=== PATIENT | male | born 1945 | race Caucasian/White ===

== ENCOUNTER 2020-10-03 15:46 | Inpatient (IN) | payer OTHER ==
[2020-10-03] MEDS ORDERED: Sodium Chloride 0.9% 10 ML Syringe FLUSH PRN (16:10)
[2020-10-03] MEDS ORDERED: Sodium Chloride 0.9% 2.5 ML Syringe FLUSH PRN (16:10)
[2020-10-03] MEDS ORDERED: Ondansetron 4 MG/2 ML SDV IVPUSH ONE (16:11)
--- NOTE | 2020-10-03 16:14 | EDM.PDOC ---
<WilburJoseph - Last Filed: 10/03/20 19:37> ED HPI GENERAL MEDICAL PROBLEM - General Chief Complaint: Gastrointestinal Problem Stated Complaint: [facility] Time Seen by Provider: 10/03/20 15:50 - History of Present Illness INITIAL COMMENTS - FREE TEXT/NARRATIVE: 75-year-old male history of CABG and CAD in the remote past history of appendectomy in the remote past who is presenting with nausea vomiting abdominal pain that started this morning. Patient typically has 5-7 bowel movements a day usually he has 4 bowel movements in the morning when he wakes up. He had 2 bowel movements today that felt incomplete. Around 1130 this morning he developed cramping generalized abdominal pain associated with chills and nonbloody nonbilious emesis. Has been unable to stop vomiting since then. Symptoms are associated with diffuse muscle cramps. Patient and his both had a complete Covid series but finished at the beginning of August. No prior history of bowel obstructions. abd Pain Score (Numeric/FACES): 8 - Related Data Allergies Allergy/AdvReac Type Severity Reaction Status Date / Time Penicillins Allergy Swelling Verified 10/03/20 16:00 Home Meds: Home Meds . 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 Skin: No rash. Eyes: No vision problems. ENT: No sore throat. Neck: No neck stiffness. Respiratory: No shortness of breath. Cardiac: No chest pain. Gastrointestinal: Per HPI Urinary: No dysuria. Musculoskeletal: No myalgias/arthralgias. Neurologic: No headache. ED EXAM, GENERAL - Physical Exam Exam: See Below Free Text/Narrative:: General Appearance: No acute distress, appears comfortable Skin: No rash HEENT: Normocephalic/atraumatic, sclera anicteric, dry mucous membranes Neck: Normal range of motion Chest and Lungs: Bilateral breath sounds, clear to auscultation Cardiovascular: Regular rate and rhythm, no murmur Abdomen: Soft, non-tender Back: Normal Musculoskeletal: No edema or tenderness Neurologic: Awake, alert, no obvious deficits, moving all extremities Psychiatric: Appropriate, cooperative Departure - Departure Disposition: Admitted As Inpatient 64 Clinical Impression: Splenic infarct Abdominal pain Qualifiers: Abdominal location: generalized Qualified Code(s): R10.84 - Generalized abdominal pain Cholelithiasis Qualifiers: Cholelithiasis location: gallbladder Cholecystitis presence: without cholecystitis Biliary obstruction: without biliary obstruction Qualified Code(s): K80.20 - Calculus of gallbladder without cholecystitis without obstruction - Discharge Information Referrals: Mahendra Shirley WELT RANDER [Primary Care Provider] - Forms: ED Department Discharge Sepsis Event Note (ED) - Evaluation Sepsis Screening Result: No Definite Risk - Assessment/Plan Assessment:: 75-year-old male presenting with signs and symptoms that are most consistent with a gastroenteritis versus bowel obstruction less likely diverticulitis Cristiano felt unlikely given his vaccination history but patient and family concerned and so we will swab. Zofran for symptoms as well as IV fluids the patient is clinically dehydrated. Labs and imaging pending. 1830: Labs with a significant leukocytosis. No significant transaminitis however. CT scan demonstrates a splenic infarct as well as cholelithiasis. Pt discussed with Dr. Fonseca. This large splenic infarct would explain his symptoms. However, the underlying etiology is unclear at this time. She will come evaluate the patient. 1850: I confirmed with the patient's that the patient does not take any medications of any kind, he takes daily psyllium powder as well as a multivitamin. No ASA or other medications. Patient and his both received the Moderna COVID vaccination. Pt signed out to Dr. Galarza pending final disposition. <Wellington Galarza - Last Filed: 10/03/20 19:54> ED HPI GENERAL MEDICAL PROBLEM - History of Present Illness INITIAL COMMENTS - FREE TEXT/NARRATIVE: 7:51 PM: Signout received by me at 7 PM. Patient is currently being evaluated by surgery secondary to splenic infarct and cholelithiasis. At this time, after case was discussed with vascular at [facility] by her surgery consult, plan will be to admit the patient to our hospitalist service and managed here in [place] [facility] with hydration and anticoagulation. Course - Vital Signs Last Recorded V/S: Last Vital Signs Temp 97.6 F 10/03/20 16:01 Pulse 78 10/03/20 17:00 Resp 17 10/03/20 17:00 BP 140/75 10/03/20 17:00 Pulse Ox 96 10/03/20 17:00 - Orders/Labs/Meds Orders: Active Orders 24 hr Category Date Time Status Lactated Ringers [Ringers, Lactated] 1,000 ml Med 10/03/20 16:15 Active IV ASDIRECTED Sodium Chloride 0.9% [Saline Flush] Med 10/03/20 16:10 Active 10 ml FLUSH ASDIRECTED PRN Sodium Chloride 0.9% [Saline Flush] Med 10/03/20 16:10 Active 2.5 ml FLUSH ASDIRECTED PRN Saline Lock Insert [OM.PC] Stat Oth 10/03/20 16:10 Ordered Medication Orders Lactated Ringer's (Ringers, Lactated) 1,000 mls @ 999 mls/hr IV ASDIRECTED DALE Last Admin: 10/03/20 16:19 Dose: 999 mls/hr Documented by: DAMIEN Sodium Chloride (Sodium Chloride 0.9% 10 Ml Syringe) 10 ml FLUSH ASDIRECTED PRN PRN Reason: Keep Vein Open Last Admin: 10/03/20 16:20 Dose: 10 ml Documented by: DAMIEN Sodium Chloride (Sodium Chloride 0.9% 2.5 Ml Syringe) 2.5 ml FLUSH ASDIRECTED PRN PRN Reason: Keep Vein Open Last Admin: 10/03/20 16:20 Dose: 2.5 ml Documented by: DAMIEN Labs: Laboratory Tests 10/03/20 10/03/20 10/03/20 Range/Units 16:14 16:14 16:14 WBC 22.32 H (4.0-11.0) K/uL RBC 4.28 L (4.50-5.90) M/uL Hgb 13.4 (13.0-17.0) g/dL Hct 40.4 (38.0-50.0) % MCV 94.4 (80.0-98.0) fL MCH 31.3 (27.0-32.0) pg MCHC 33.2 (31.0-37.0) g/dL RDW Std Deviation 43.0 (28.0-62.0) fl RDW Coeff of Karma 13 (11.0-15.0) % Plt Count 250 (150-400) K/uL MPV 8.50 (7.40-12.00) fL Neut % (Auto) 92.3 H (48.0-80.0) % Lymph % (Auto) 2.8 L (16.0-40.0) % [place] % (Auto) 4.9 (0.0-15.0) % Eos % (Auto) 0.0 (0.0-7.0) % Baso % (Auto) 0.0 (0.0-1.5) % Neut # (Auto) 20.6 H (1.4-5.7) K/uL Lymph # (Auto) 0.6 (0.6-2.4) K/uL [place] # (Auto) 1.1 H (0.0-0.8) K/uL Eos # (Auto) 0.0 (0.0-0.7) K/uL Baso # (Auto) 0.0 (0.0-0.1) K/uL Nucleated RBC % 0.0 /100WBC Nucleated RBCs # 0 K/uL Lactate 1.7 (0.20-2.00) mmol/L Sodium 138 (136-148) mmol/L Potassium 3.8 (3.5-5.1) mmol/L Chloride 102 (98-107) mmol/L Carbon Dioxide 25.1 (21.0-32.0) mmol/L BUN 16 (7.0-18.0) mg/dL Creatinine 1.2 (0.8-1.3) mg/dL Est Cr Clr Drug Dosing 51.55 mL/min Estimated GFR (MDRD) 58.7 ml/min Glucose 152 H (74-106) mg/dL Calcium 8.3 L (8.5-10.1) mg/dL Magnesium 2.1 (1.8-2.4) mg/dL Total Bilirubin 0.7 (0.2-1.0) mg/dL AST 20 (15-37) IU/L ALT 24 (14-63) IU/L Alkaline Phosphatase 70 (46-116) U/L Total Protein 7.6 (6.4-8.2) g/dL Albumin 3.2 L (3.4-5.0) g/dL Globulin 4.4 H (2.6-4.0) g/dL Albumin/Globulin Ratio 0.7 L (0.9-1.6) Lipase 79 (73-393) U/L Influenza Type A RNA (NEGATIVE) Influenza Type B RNA (NEGATIVE) SARS-CoV-2 RNA (ETTA) (NEGATIVE) 10/03/20 Range/Units 16:30 WBC (4.0-11.0) K/uL RBC (4.50-5.90) M/uL Hgb (13.0-17.0) g/dL Hct (38.0-50.0) % MCV (80.0-98.0) fL MCH (27.0-32.0) pg MCHC (31.0-37.0) g/dL RDW Std Deviation (28.0-62.0) fl RDW Coeff of Karma (11.0-15.0) % Plt Count (150-400) K/uL MPV (7.40-12.00) fL Neut % (Auto) (48.0-80.0) % Lymph % (Auto) (16.0-40.0) % [place] % (Auto) (0.0-15.0) % Eos % (Auto) (0.0-7.0) % Baso % (Auto) (0.0-1.5) % Neut # (Auto) (1.4-5.7) K/uL Lymph # (Auto) (0.6-2.4) K/uL [place] # (Auto) (0.0-0.8) K/uL Eos # (Auto) (0.0-0.7) K/uL Baso # (Auto) (0.0-0.1) K/uL Nucleated RBC % /100WBC Nucleated RBCs # K/uL Lactate (0.20-2.00) mmol/L Sodium (136-148) mmol/L Potassium (3.5-5.1) mmol/L Chloride (98-107) mmol/L Carbon Dioxide (21.0-32.0) mmol/L BUN (7.0-18.0) mg/dL Creatinine (0.8-1.3) mg/dL Est Cr Clr Drug Dosing mL/min Estimated GFR (MDRD) ml/min Glucose (74-106) mg/dL Calcium (8.5-10.1) mg/dL Magnesium (1.8-2.4) mg/dL Total Bilirubin (0.2-1.0) mg/dL AST (15-37) IU/L ALT (14-63) IU/L Alkaline Phosphatase (46-116) U/L Total Protein (6.4-8.2) g/dL Albumin (3.4-5.0) g/dL Globulin (2.6-4.0) g/dL Albumin/Globulin Ratio (0.9-1.6) Lipase (73-393) U/L Influenza Type A RNA NEGATIVE (NEGATIVE) Influenza Type B RNA NEGATIVE (NEGATIVE) SARS-CoV-2 RNA (ETTA) NEGATIVE (NEGATIVE) Meds: Medications Generic Name Dose Route Start Last Admin Trade Name Freq PRN Reason Stop Dose Admin Lactated Ringer's 1,000 mls @ 999 mls/hr 10/03/20 16:15 10/03/20 16:19 Ringers, Lactated IV 999 mls/hr ASDIRECTED DALE Administration Sodium Chloride 10 ml 10/03/20 16:10 10/03/20 16:20 Sodium Chloride 0.9% 10 Ml Syringe FLUSH 10 ml ASDIRECTED PRN Administration Keep Vein Open Sodium Chloride 2.5 ml 10/03/20 16:10 10/03/20 16:20 Sodium Chloride 0.9% 2.5 Ml Syringe FLUSH 2.5 ml ASDIRECTED PRN Administration Keep Vein Open Discontinued Medications Generic Name Dose Route Start Last Admin Trade Name Freq PRN Reason Stop Dose Admin Iopamidol 100 ml 10/03/20 17:25 10/03/20 17:25 Iopamidol 755 Mg/Ml 500 Ml Multipack Bottle IVPUSH 10/03/20 17:26 100 ml ONETIME ONE Administration Morphine Sulfate 4 mg 10/03/20 19:15 Morphine 4 Mg/Ml Syringe IVPUSH 10/03/20 19:16 ONETIME ONE Ondansetron HCl 4 mg 10/03/20 16:11 10/03/20 16:19 Ondansetron 4 Mg/2 Ml Sdv IVPUSH 10/03/20 16:12 4 mg ONETIME ONE Administration Departure - Departure Time of Disposition: 19:52 Condition: Good Sepsis Event Note (ED) - Focused Exam Vital Signs: Vital Signs Temp Pulse Resp BP Pulse Ox 10/03/20 17:00 78 17 140/75 96 10/03/20 16:01 97.6 F 80 18 145/73 H 96
[2020-10-03] MEDS: Lactated Ringers 1,000 ML IV SCH (16:19)
[2020-10-03 16:42] LABS: CARBON DIOXIDE,CO2 25.1 mmol/L (21.0-32.0); POTASSIUM,K 3.8 mmol/L (3.5-5.1)
[2020-10-03 17:15] LABS: CORONAVIRUS COVID-19 NAA NEGATIVE (NEGATIVE); INFLUENZA A NAA NEGATIVE (NEGATIVE); INFLUENZA B NAA NEGATIVE (NEGATIVE)
[2020-10-03] MEDS ORDERED: Iopamidol 755 MG/ML 500 ML Multipack Bottle IVPUSH ONE (17:25)
--- NOTE | 2020-10-03 18:29 | CT ---
INDICATION: Abdominal pain. Vomiting TECHNIQUE: CT abdomen and pelvis acquired with IV contrast. 100 mL of Isovue 370 administered. COMPARISON: 01/11/2019 FINDINGS: Lower chest: Minor right basilar compressive changes. A small decompressed hiatal hernia. Liver: Unremarkable. Spleen: A large nonenhancing splenic area consistent with a splenic infarct. Pancreas: Unremarkable. Gallbladder and bile ducts: Cholelithiasis. Adrenal glands: Unremarkable. Kidneys: Unremarkable. GI tract: No bowel obstruction. The appendix is not seen. Scattered left colonic diverticula without diverticulitis. Vascular structures: Atherosclerotic changes. Lymph nodes: Unremarkable. Miscellaneous: No significant free fluid or free air. An irregular low-attenuation density in the anterior left pelvis at the orifice of the left inguinal canal, likely postsurgical. A small fat containing right inguinal hernia and a tiny fat containing umbilical hernia. A partially imaged intermuscular lipomatous lesion in the medial left proximal thigh. Pelvic Organs: Upper limits of normal prostatic size. Borderline bladder wall thickness could be related to incomplete distention. A punctate calcification along the anterior bladder wall. Bones: Sternotomy sutures. A transitional lumbosacral anatomy with a lumbarized S1 vertebral segment. An anterior compression deformity of the T12 vertebral body. Bilateral S1 spondylolysis. Degenerative changes in the spine. IMPRESSION: A large splenic infarct. Cholelithiasis. Colonic diverticulosis without diverticulitis. Other findings as above. Please note that all CT scans at this facility use dose modulation, iterative reconstruction, and/or weight-based dosing when appropriate to reduce radiation dose to as low as reasonably achievable. Dictated by Doug Payne MD @ Oct 03 2020 6:15PM Signed by Dr. Doug Payne @ Oct 03 2020 6:26PM
[2020-10-03] MEDS ORDERED: Morphine 4 MG/ML Syringe IVPUSH ONE (19:15)
--- NOTE | 2020-10-03 20:38 | PCM.CONS ---
H&P History of Present Illness - General Date of Service: 10/03/20 Admit Problem/Dx: Admission Diagnosis/Problem Admission Diagnosis/Problem Abdominal pain Source of Information: Patient History Limitations: Reports: No Limitations - History of Present Illness Initial Comments - Free Text/Narative: Patient is a 75 year old male who presents with epigastric abdominal pain as sociated with nausea and vomiting. He states that at 630 this morning he developed severe epigastric abdominal pain. He developed nausea and vomiting after this. He had a change in his bowel habits. He normally has 5-10 BMs in the morning and this morning he did not. He has never had a colonoscopy. He has a family history of a brother with leukemia. He denies any infectious contacts. He denies any history of pancreatitis. He denies having pneumonia or any sicknesses recently. He has not had COVID and he finished his COVID vaccinations in August. He has a history of melanoma and has had several lesions excised. He has a history of severe aortic valve stenosis. He had a bioprosthetic valve placed in 2018. He has carotid stenosis on the left which has been worked up. He has not had any interventions for this. He does not take any anti-coagulants. He states laying down or massaging his abdomen makes the pain better. He states that walking makes the pain worse. He denies melena, hematochezia, or coffee ground emesis. His vitals were stable on arrival. His abdomen was not acute. His CBC showed an elevated WBC of 22K. His LFTs and lipase were normal. CT scan of the abdomen pelvis showed a large splenic infarct involving 50% of the spleen. The infarct appears to be from a distal occlusion. There was no evidence of central thrombus. He does have some plaque in the aorta but not occlusive and there is no evidence of aortic aneurysm. He has cholelithiasis with no evidence of cholecystitis or choledocholithiasis. He has small fat containing left inguinal and umbilical hernia. He has diverticulosis with no evidence of diverticulitis. abd Pain Score (Numeric/FACES): 8 - Related Data Allergies/Adverse Reactions: Allergies Allergy/AdvReac Type Severity Reaction Status Date / Time Penicillins Allergy Swelling Verified 10/03/20 16:00 Home Medications: Home Meds . 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, hi story of melenoma Dermatologic History: Reports: Eczema, Melanoma - Infectious Disease History Infectious Disease History: Reports: Chicken Pox, Measles, Mumps - Past Surgical History Cardiovascular Surgical History: Reports: Valve Replacement GI Surgical History: Reports: Appendectomy Musculoskeletal Surgical History: Reports: None Oncologic Surgical History: Reports: Other (See Below) Other Oncologic Surgeries/Procedures: melanoma excision Social & Family History - Family History Family Medical History: No Pertinent Family History - Caffeine Use Caffeine Use: Reports: Coffee H&P Review of Systems - Review of Systems: Review Of Systems: Comprehensive ROS is negative, except as noted in HPI. Exam - Exam Exam: See Below - Vital Signs Vital Signs: Last Vital Signs Temp 36.4 C 10/03/20 16:01 Pulse 78 10/03/20 17:00 Resp 17 10/03/20 17:00 BP 140/75 10/03/20 17:00 Pulse Ox 96 10/03/20 17:00 Weight: 81.647 kg - Exam General: Alert, Oriented, Cooperative HEENT: Conjunctiva Clear, Mucosa Moist & [place], Posterior Pharynx Clear Neck: Supple, Trachea Midline Lungs: Clear to Auscultation, Normal Respiratory Effort Cardiovascular: Regular Rate, Regular Rhythm GI/Abdominal Exam: Soft, Non-Tender, No Distention, No Mass Extremities: Normal Inspection Skin: Warm, Dry, Intact Neuro Extensive - Mental Status: Alert, Oriented x3, Normal Mood/Affect, Normal Cognition - Patient Data Lab Results Last 24 hrs: Laboratory Results - last 24 hr 10/03/20 10/03/20 10/03/20 Range/Units 16:14 16:14 16:14 WBC 22.32 H (4.0-11.0) K/uL RBC 4.28 L (4.50-5.90) M/uL Hgb 13.4 (13.0-17.0) g/dL Hct 40.4 (38.0-50.0) % MCV 94.4 (80.0-98.0) fL MCH 31.3 (27.0-32.0) pg MCHC 33.2 (31.0-37.0) g/dL RDW Std Deviation 43.0 (28.0-62.0) fl RDW Coeff of Karma 13 (11.0-15.0) % Plt Count 250 (150-400) K/uL MPV 8.50 (7.40-12.00) fL Neut % (Auto) 92.3 H (48.0-80.0) % Lymph % (Auto) 2.8 L (16.0-40.0) % [place] % (Auto) 4.9 (0.0-15.0) % Eos % (Auto) 0.0 (0.0-7.0) % Baso % (Auto) 0.0 (0.0-1.5) % Neut # (Auto) 20.6 H (1.4-5.7) K/uL Lymph # (Auto) 0.6 (0.6-2.4) K/uL [place] # (Auto) 1.1 H (0.0-0.8) K/uL Eos # (Auto) 0.0 (0.0-0.7) K/uL Baso # (Auto) 0.0 (0.0-0.1) K/uL Nucleated RBC % 0.0 /100WBC Nucleated RBCs # 0 K/uL INR APTT (18.6-31.3) SEC Lactate 1.7 (0.20-2.00) mmol/L Sodium 138 (136-148) mmol/L Potassium 3.8 (3.5-5.1) mmol/L Chloride 102 (98-107) mmol/L Carbon Dioxide 25.1 (21.0-32.0) mmol/L BUN 16 (7.0-18.0) mg/dL Creatinine 1.2 (0.8-1.3) mg/dL Est Cr Clr Drug Dosing 51.55 mL/min Estimated GFR (MDRD) 58.7 ml/min Glucose 152 H (74-106) mg/dL Calcium 8.3 L (8.5-10.1) mg/dL Magnesium 2.1 (1.8-2.4) mg/dL Total Bilirubin 0.7 (0.2-1.0) mg/dL AST 20 (15-37) IU/L ALT 24 (14-63) IU/L Alkaline Phosphatase 70 (46-116) U/L Total Protein 7.6 (6.4-8.2) g/dL Albumin 3.2 L (3.4-5.0) g/dL Globulin 4.4 H (2.6-4.0) g/dL Albumin/Globulin Ratio 0.7 L (0.9-1.6) Lipase 79 (73-393) U/L Influenza Type A RNA (NEGATIVE) Influenza Type B RNA (NEGATIVE) SARS-CoV-2 RNA (ETTA) (NEGATIVE) 10/03/20 10/03/20 Range/Units 16:14 16:30 WBC (4.0-11.0) K/uL RBC (4.50-5.90) M/uL Hgb (13.0-17.0) g/dL Hct (38.0-50.0) % MCV (80.0-98.0) fL MCH (27.0-32.0) pg MCHC (31.0-37.0) g/dL RDW Std Deviation (28.0-62.0) fl RDW Coeff of Karma (11.0-15.0) % Plt Count (150-400) K/uL MPV (7.40-12.00) fL Neut % (Auto) (48.0-80.0) % Lymph % (Auto) (16.0-40.0) % [place] % (Auto) (0.0-15.0) % Eos % (Auto) (0.0-7.0) % Baso % (Auto) (0.0-1.5) % Neut # (Auto) (1.4-5.7) K/uL Lymph # (Auto) (0.6-2.4) K/uL [place] # (Auto) (0.0-0.8) K/uL Eos # (Auto) (0.0-0.7) K/uL Baso # (Auto) (0.0-0.1) K/uL Nucleated RBC % /100WBC Nucleated RBCs # K/uL INR 1.04 APTT 21.0 (18.6-31.3) SEC Lactate (0.20-2.00) mmol/L Sodium (136-148) mmol/L Potassium (3.5-5.1) mmol/L Chloride (98-107) mmol/L Carbon Dioxide (21.0-32.0) mmol/L BUN (7.0-18.0) mg/dL Creatinine (0.8-1.3) mg/dL Est Cr Clr Drug Dosing mL/min Estimated GFR (MDRD) ml/min Glucose (74-106) mg/dL Calcium (8.5-10.1) mg/dL Magnesium (1.8-2.4) mg/dL Total Bilirubin (0.2-1.0) mg/dL AST (15-37) IU/L ALT (14-63) IU/L Alkaline Phosphatase (46-116) U/L Total Protein (6.4-8.2) g/dL Albumin (3.4-5.0) g/dL Globulin (2.6-4.0) g/dL Albumin/Globulin Ratio (0.9-1.6) Lipase (73-393) U/L Influenza Type A RNA NEGATIVE (NEGATIVE) Influenza Type B RNA NEGATIVE (NEGATIVE) SARS-CoV-2 RNA (ETTA) NEGATIVE (NEGATIVE) Result Diagrams: 10/03/20 16:14 10/03/20 16:14 Sepsis Event Note - Evaluation Sepsis Screening Result: No Definite Risk - Focused Exam Vital Signs: Vital Signs Temp Pulse Resp BP Pulse Ox 10/03/20 17:00 78 17 140/75 96 10/03/20 16:01 36.4 C 80 18 145/73 H 96 Consult PN Assessment/Plan Procedures: Procedures ASSAY OF LIPASE (01/11/19) ASSAY OF TROPONIN QUANT (01/03/18) ASSAY THYROID STIM HORMONE (01/03/18) BLOOD CULTURE FOR BACTERIA (01/03/18) C-REACTIVE PROTEIN (01/13/15) CARDIAC REHAB/MONITOR (09/14/18) COMPLETE CBC AUTOMATED (01/11/19) COMPLETE CBC W/AUTO DIFF WBC (01/03/18) COMPREHEN METABOLIC PANEL (01/11/19) CT ABD & PELV 1/> REGNS (01/11/19) CT ABD & PELV W/CONTRAST (01/13/15) CT ANGIOGRAPHY NECK (09/25/18) CT HEAD/BRAIN W/O DYE (01/03/18) CT MAXILLOFACIAL W/O DYE (08/07/15) EEG AWAKE AND ASLEEP (01/18/18) ELECTROCARDIOGRAM TRACING (01/03/18) EMERGENCY DEPT VISIT (01/03/18) EMERGENCY DEPT VISIT (01/13/15) EXTRACRANIAL BILAT STUDY (09/17/18) GLYCOSYLATED HEMOGLOBIN TEST (01/03/18) HYDRATE IV INFUSION ADD-ON (01/03/18) LIPID PANEL (01/03/18) METABOLIC PANEL TOTAL CA (09/21/18) MRI BRAIN STEM W/O & W/DYE (01/19/18) OFFICE O/P NEW LOW 30-44 MIN (01/15/15) POLYSOM 6/>YRS CPAP 4/> PARM (02/26/20) PROTHROMBIN TIME (01/03/18) ROUTINE VENIPUNCTURE (01/11/19) THER/PROPH/DIAG INJ IV PUSH (01/03/18) THER/PROPH/DIAG INJ SC/IM (01/03/18) THROMBOPLASTIN TIME PARTIAL (01/03/18) TTE W/DOPPLER COMPLETE (01/03/18) TX/PRO/DX INJ NEW DRUG ADDON (01/13/15) TX/PRO/DX INJ SAME DRUG ENTERPRISE SOFTWARE ENGINEER (01/03/18) URINALYSIS AUTO W/SCOPE (01/03/18) US EXAM OF HEAD AND NECK (10/15/15) X-RAY EXAM CHEST 1 VIEW (01/03/18) (1) Splenic infarct SNOMED Code(s): 95995902 Code(s): D73.5 - INFARCTION OF SPLEEN Current Visit: Yes Problem List Initiated/Reviewed/Updated: Yes Plan: The patient and I discussed the CT findings. His abdominal pain and associated nausea and vomiting are likely caused by his splenic infarct. I visited with the radiologist who read his CT to ensure there was no central arterial occlusion. I called the energy conservation director vascular surgeon at [facility] in [place], [place]. He felt that this was unlikely to be due to a cardiac source or embolic from the celiac axis given the tortuosity of the splenic artery and how distal the occlusion was. The differential includes infectious process, hypercoagulable state due to primary hematologic etiologies vs malignancy. We both agreed that given the degree of infarct and the unknown cause at this time, he should be therapeutically anticoagulated with heparin. He will need to be discharged on anticoagulants and follow up with a campaign management specialist. He also recommended fluid resuscitation. He does not feel a TTE or TRUDY is emergent. I visited with our hospitalist who has agreed to admit the patient for IV fluid resuscitation, anticoagulation management and hypercoagulability workup. From a surgical standpoint, he does not need surgery at this time. I told the patient he could drink clear liquids tonight however given his vomiting throughout the day he states that he would like to be npo tonight. I told him he can due that but that he will have anti-nausea medications available as well. Likely his nausea and change in bowel habits is due to the irritation/inflammation caused by the splenic infarction. I will continue to follow along during this patient's hospital course. We may not know the etiology of this infarction by his time of discharge, but we will treat his pain, control his nausea and help prevent any propagation of his clot.
[2020-10-03] MEDS ORDERED: Ondansetron 4 MG/2 ML SDV IVPUSH PRN (21:48)
[2020-10-03] MEDS ORDERED: Heparin Sodium 5,000 Units/ML Vial IVPUSH ONE (22:01)
[2020-10-03] MEDS: Heparin Sodium/0.45% NaCl 500 ML IV SCH (22:37)
--- NOTE | 2020-10-03 22:49 | PCM.HP.2 ---
H&P History of Present Illness - General Date of Service: 10/04/20 Admit Problem/Dx: Admission Diagnosis/Problem Admission Diagnosis/Problem Abdominal pain - History of Present Illness Initial Comments - Free Text/Narative: 75 yo male with pmh of bioprosthetic aortic valve in 2019. Patient reports he was on coumadin after the surgery for about three months. He reports a history of groin and rectal trauma from falling off a construction site. He reports having a regiment of hyscilium powder and early intervention specialist exercises to keep his bowel movements regular. This morning he felt he did not complete his bowel movement. He then later developed heart burn followed by lower abdominal pain. He drank prune juice but then threw it up. Patient is worried about eating and drinking as he is afraid it may make him throw up again. Dr. Fonseca was consulted in the ED due to CT findings of infarct of spleen. She called the vascular surgeon in [place] who recommended hydration and anticoagulation. Patient denies any fever, chest pain, blood in stool or vomit. abd Pain Score (Numeric/FACES): 8 - Related Data Allergies/Adverse Reactions: Allergies Allergy/AdvReac Type Severity Reaction Status Date / Time No Known Allergies Allergy Verified 10/03/20 21:50 Home Medications: Home Meds . 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, hist ory of melenoma Dermatologic History: Reports: Eczema, Melanoma - Infectious Disease History Infectious Disease History: Reports: Chicken Pox, Measles, Mumps - Past Surgical History Cardiovascular Surgical History: Reports: Valve Replacement GI Surgical History: Reports: Appendectomy Musculoskeletal Surgical History: Reports: None Oncologic Surgical History: Reports: Other (See Below) Other Oncologic Surgeries/Procedures: melanoma excision Social & Family History - Family History Family Medical History: No Pertinent Family History - Caffeine Use Caffeine Use: Reports: Coffee H&P Review of Systems - Review of Systems: Review Of Systems: Comprehensive ROS is negative, except as noted in HPI. Exam - Exam Exam: See Below - Vital Signs Vital Signs: Last Vital Signs Temp 36.8 C 10/03/20 20:54 Pulse 70 10/03/20 20:54 Resp 18 10/03/20 20:54 BP 140/76 10/03/20 20:54 Pulse Ox 96 10/03/20 20:54 Weight: 79.968 kg - Exam General: Alert, Oriented HEENT: Mucosa Moist & [place] Lungs: Clear to Auscultation, Normal Respiratory Effort Cardiovascular: Regular Rate, Regular Rhythm, Systolic Murmur GI/Abdominal Exam: Soft, Non-Tender, No Distention Extremities: Non-Tender, No Pedal Edema Skin: Warm, Dry, Intact - Patient Data Lab Results Last 24 hrs: Laboratory Results - last 24 hr 10/03/20 10/03/20 10/03/20 Range/Units 16:14 16:14 16:14 WBC 22.32 H (4.0-11.0) K/uL RBC 4.28 L (4.50-5.90) M/uL Hgb 13.4 (13.0-17.0) g/dL Hct 40.4 (38.0-50.0) % MCV 94.4 (80.0-98.0) fL MCH 31.3 (27.0-32.0) pg MCHC 33.2 (31.0-37.0) g/dL RDW Std Deviation 43.0 (28.0-62.0) fl RDW Coeff of Karma 13 (11.0-15.0) % Plt Count 250 (150-400) K/uL MPV 8.50 (7.40-12.00) fL Neut % (Auto) 92.3 H (48.0-80.0) % Lymph % (Auto) 2.8 L (16.0-40.0) % [place] % (Auto) 4.9 (0.0-15.0) % Eos % (Auto) 0.0 (0.0-7.0) % Baso % (Auto) 0.0 (0.0-1.5) % Neut # (Auto) 20.6 H (1.4-5.7) K/uL Lymph # (Auto) 0.6 (0.6-2.4) K/uL [place] # (Auto) 1.1 H (0.0-0.8) K/uL Eos # (Auto) 0.0 (0.0-0.7) K/uL Baso # (Auto) 0.0 (0.0-0.1) K/uL Nucleated RBC % 0.0 /100WBC Nucleated RBCs # 0 K/uL INR APTT (18.6-31.3) SEC Lactate 1.7 (0.20-2.00) mmol/L Sodium 138 (136-148) mmol/L Potassium 3.8 (3.5-5.1) mmol/L Chloride 102 (98-107) mmol/L Carbon Dioxide 25.1 (21.0-32.0) mmol/L BUN 16 (7.0-18.0) mg/dL Creatinine 1.2 (0.8-1.3) mg/dL Est Cr Clr Drug Dosing 51.55 mL/min Estimated GFR (MDRD) 58.7 ml/min Glucose 152 H (74-106) mg/dL Calcium 8.3 L (8.5-10.1) mg/dL Magnesium 2.1 (1.8-2.4) mg/dL Total Bilirubin 0.7 (0.2-1.0) mg/dL AST 20 (15-37) IU/L ALT 24 (14-63) IU/L Alkaline Phosphatase 70 (46-116) U/L Total Protein 7.6 (6.4-8.2) g/dL Albumin 3.2 L (3.4-5.0) g/dL Globulin 4.4 H (2.6-4.0) g/dL Albumin/Globulin Ratio 0.7 L (0.9-1.6) Lipase 79 (73-393) U/L Influenza Type A RNA (NEGATIVE) Influenza Type B RNA (NEGATIVE) SARS-CoV-2 RNA (ETTA) (NEGATIVE) 10/03/20 10/03/20 Range/Units 16:14 16:30 WBC (4.0-11.0) K/uL RBC (4.50-5.90) M/uL Hgb (13.0-17.0) g/dL Hct (38.0-50.0) % MCV (80.0-98.0) fL MCH (27.0-32.0) pg MCHC (31.0-37.0) g/dL RDW Std Deviation (28.0-62.0) fl RDW Coeff of Karma (11.0-15.0) % Plt Count (150-400) K/uL MPV (7.40-12.00) fL Neut % (Auto) (48.0-80.0) % Lymph % (Auto) (16.0-40.0) % [place] % (Auto) (0.0-15.0) % Eos % (Auto) (0.0-7.0) % Baso % (Auto) (0.0-1.5) % Neut # (Auto) (1.4-5.7) K/uL Lymph # (Auto) (0.6-2.4) K/uL [place] # (Auto) (0.0-0.8) K/uL Eos # (Auto) (0.0-0.7) K/uL Baso # (Auto) (0.0-0.1) K/uL Nucleated RBC % /100WBC Nucleated RBCs # K/uL INR 1.04 APTT 21.0 (18.6-31.3) SEC Lactate (0.20-2.00) mmol/L Sodium (136-148) mmol/L Potassium (3.5-5.1) mmol/L Chloride (98-107) mmol/L Carbon Dioxide (21.0-32.0) mmol/L BUN (7.0-18.0) mg/dL Creatinine (0.8-1.3) mg/dL Est Cr Clr Drug Dosing mL/min Estimated GFR (MDRD) ml/min Glucose (74-106) mg/dL Calcium (8.5-10.1) mg/dL Magnesium (1.8-2.4) mg/dL Total Bilirubin (0.2-1.0) mg/dL AST (15-37) IU/L ALT (14-63) IU/L Alkaline Phosphatase (46-116) U/L Total Protein (6.4-8.2) g/dL Albumin (3.4-5.0) g/dL Globulin (2.6-4.0) g/dL Albumin/Globulin Ratio (0.9-1.6) Lipase (73-393) U/L Influenza Type A RNA NEGATIVE (NEGATIVE) Influenza Type B RNA NEGATIVE (NEGATIVE) SARS-CoV-2 RNA (ETTA) NEGATIVE (NEGATIVE) Result Diagrams: 10/04/20 04:50 10/04/20 04:50 Sepsis Event Note - Evaluation Sepsis Screening Result: No Definite Risk - Focused Exam Vital Signs: Vital Signs Temp Pulse Resp BP Pulse Ox 10/03/20 20:54 36.8 C 70 18 140/76 96 10/03/20 17:00 78 17 140/75 96 10/03/20 16:01 36.4 C 80 18 145/73 H 96 Problem List Initiated/Reviewed/Updated: Yes Orders Last 24hrs: Active Orders 24 hr Category Date Time Status Patient Status [ADT] Routine ADT 10/03/20 19:54 Active Telemetry Monitoring [Cardiac Monitoring] [RC] . Care 10/03/20 20:30 Active DIRECTED Regular Diet [DIET] Diet 10/03/20 Dinner Active PTT,PARTIAL THROMBOPLSTIN TIME [COAG] Q6H Lab 10/04/20 04:45 Ordered PTT,PARTIAL THROMBOPLSTIN TIME [COAG] Q6H Lab 10/04/20 10:45 Ordered PTT,PARTIAL THROMBOPLSTIN TIME [COAG] Q6H Lab 10/04/20 16:45 Ordered PTT,PARTIAL THROMBOPLSTIN TIME [COAG] Q6H Lab 10/04/20 22:45 Ordered Heparin Sodium/0.45% NaCl [Heparin 25,000 Units in 1/2 Med 10/03/20 21:45 Active NS 500 ML] 500 ml IV TITRATE Lactated Ringers [Ringers, Lactated] 1,000 ml Med 10/03/20 16:15 Active IV ASDIRECTED Morphine Med 10/03/20 21:47 Active 2 mg IVPUSH Q3H PRN Ondansetron [Zofran] Med 10/03/20 21:48 Active 4 mg IVPUSH Q4H PRN Sodium Chloride 0.9% [Saline Flush] Med 10/03/20 16:10 Active 10 ml FLUSH ASDIRECTED PRN Sodium Chloride 0.9% [Saline Flush] Med 10/03/20 16:10 Active 2.5 ml FLUSH ASDIRECTED PRN Saline Lock Insert [OM.PC] Stat Oth 10/03/20 16:10 Ordered Medication Orders Lactated Ringer's (Ringers, Lactated) 1,000 mls @ 999 mls/hr IV ASDIRECTED DALE Last Admin: 10/03/20 16:19 Dose: 999 mls/hr Documented by: DAMIEN Heparin Sodium/Sodium Chloride (Heparin 25,000 Units In 1/2 Ns 500 Ml) 500 mls @ 25.59 mls/hr IV TITRATE DALE; Protocol Last Admin: 10/03/20 22:37 Dose: 16 units/kg/hr, 25.59 mls/hr Documented by: ALBER Cosigned by: ELIZABETH Morphine Sulfate (Morphine 2 Mg/Ml Syringe) 2 mg IVPUSH Q3H PRN PRN Reason: Pain Ondansetron HCl (Ondansetron 4 Mg/2 Ml Sdv) 4 mg IVPUSH Q4H PRN PRN Reason: Nausea/Vomiting Sodium Chloride (Sodium Chloride 0.9% 10 Ml Syringe) 10 ml FLUSH ASDIRECTED PRN PRN Reason: Keep Vein Open Last Admin: 10/03/20 16:20 Dose: 10 ml Documented by: DAMIEN Sodium Chloride (Sodium Chloride 0.9% 2.5 Ml Syringe) 2.5 ml FLUSH ASDIRECTED PRN PRN Reason: Keep Vein Open Last Admin: 10/03/20 16:20 Dose: 2.5 ml Documented by: DAMIEN Assessment/Plan Comment:: 75 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 We will hydrate with IV fluids and rest bowels for tonight. No obvious signs of infection but will check CXR and UA. We will anticoagulate with heparin and bridge to Coumadin.
[2020-10-04] MEDS: Lactated Ringers 1,000 ML IV SCH ×4 (00:24→23:35)
[2020-10-04] MEDS: Pantoprazole 40 MG in Sodium Chloride 0.9% 10 ML IV SCH ×2 (01:11→23:52)
--- NOTE | 2020-10-04 02:00 | CR ---
INDICATION: Leukocytosis. COMPARISON: None available. FINDINGS: An erect single view of the chest was obtained at STUDY TIME hours. The lungs are clear. No focal or diffuse infiltrates are present. The heart is normal in size. There are new sternal wires from median sternotomy. The mediastinum is otherwise normal in appearance. There is moderate superior subluxation of the right humeral head from degeneration or disruption of the rotator cuff. The osseous structures are otherwise normal in appearance for the patient`s age. IMPRESSION: No active disease seen in the chest. Dictated by Inderjit Chicas MD @ Oct 04 2020 1:58AM Signed by Dr. Inderjit Chicas @ Oct 04 2020 1:59AM
[2020-10-04 05:21] LABS: POTASSIUM,K 4.4 mmol/L (3.5-5.1)
[2020-10-04] MEDS ORDERED: Heparin Sodium 5,000 Units/ML Vial IVPUSH ONE ×3 (05:30→17:16)
--- NOTE | 2020-10-04 10:05 | PCM.CONSN ---
- General Info Date of Service: 10/04/20 Subjective Update: Patient states that his abdomen feels much better today. His pain is greatly improved. He still feels bloated but is passing gas. He has not had a BM this morning. Functional Status: Reports: Pain Controlled, Tolerating Diet, Ambulating, Urinating - Review of Systems General: Reports: No Symptoms HEENT: Reports: No Symptoms Pulmonary: Reports: No Symptoms Cardiovascular: Reports: No Symptoms Gastrointestinal: Reports: [place], Other (bloating) - Patient Data Vitals - Most Recent: Last Vital Signs Temp 37.3 C 10/04/20 08:00 Pulse 94 10/04/20 08:00 Resp 14 10/04/20 08:00 BP 120/60 10/04/20 08:00 Pulse Ox 100 10/04/20 08:00 Weight - Most Recent: 79.968 kg I&O - Last 24 Hours: Intake & Output 10/03/20 10/04/20 10/04/20 22:59 06:59 14:59 Intake Total 770 Output Total 460 Balance 310 Lab Results Last 24 Hours: Laboratory Results - last 24 hr 10/03/20 10/03/20 10/03/20 Range/Units 16:14 16:14 16:14 WBC 22.32 H (4.0-11.0) K/uL RBC 4.28 L (4.50-5.90) M/uL Hgb 13.4 (13.0-17.0) g/dL Hct 40.4 (38.0-50.0) % MCV 94.4 (80.0-98.0) fL MCH 31.3 (27.0-32.0) pg MCHC 33.2 (31.0-37.0) g/dL RDW Std Deviation 43.0 (28.0-62.0) fl RDW Coeff of Karma 13 (11.0-15.0) % Plt Count 250 (150-400) K/uL MPV 8.50 (7.40-12.00) fL Neut % (Auto) 92.3 H (48.0-80.0) % Lymph % (Auto) 2.8 L (16.0-40.0) % [place] % (Auto) 4.9 (0.0-15.0) % Eos % (Auto) 0.0 (0.0-7.0) % Baso % (Auto) 0.0 (0.0-1.5) % Neut # (Auto) 20.6 H (1.4-5.7) K/uL Lymph # (Auto) 0.6 (0.6-2.4) K/uL [place] # (Auto) 1.1 H (0.0-0.8) K/uL Eos # (Auto) 0.0 (0.0-0.7) K/uL Baso # (Auto) 0.0 (0.0-0.1) K/uL Nucleated RBC % 0.0 /100WBC Nucleated RBCs # 0 K/uL INR APTT (18.6-31.3) SEC Lactate 1.7 (0.20-2.00) mmol/L Sodium 138 (136-148) mmol/L Potassium 3.8 (3.5-5.1) mmol/L Chloride 102 (98-107) mmol/L Carbon Dioxide 25.1 (21.0-32.0) mmol/L BUN 16 (7.0-18.0) mg/dL Creatinine 1.2 (0.8-1.3) mg/dL Est Cr Clr Drug Dosing 51.55 mL/min Estimated GFR (MDRD) 58.7 ml/min Glucose 152 H (74-106) mg/dL Calcium 8.3 L (8.5-10.1) mg/dL Magnesium 2.1 (1.8-2.4) mg/dL Total Bilirubin 0.7 (0.2-1.0) mg/dL AST 20 (15-37) IU/L ALT 24 (14-63) IU/L Alkaline Phosphatase 70 (46-116) U/L Total Protein 7.6 (6.4-8.2) g/dL Albumin 3.2 L (3.4-5.0) g/dL Globulin 4.4 H (2.6-4.0) g/dL Albumin/Globulin Ratio 0.7 L (0.9-1.6) Lipase 79 (73-393) U/L Urine Color Urine Appearance Urine pH (5.0-8.0) Ur Specific [place] (1.001-1.035) Urine Protein (NEGATIVE) mg/dL Urine Glucose (UA) (NEGATIVE) mg/dL Urine Ketones (NEGATIVE) mg/dL Urine Occult Blood (NEGATIVE) Urine Nitrite (NEGATIVE) Urine Bilirubin (NEGATIVE) Urine Urobilinogen (<2.0) EU/dL Ur Leukocyte Esterase (NEGATIVE) Influenza Type A RNA (NEGATIVE) Influenza Type B RNA (NEGATIVE) SARS-CoV-2 RNA (ETTA) (NEGATIVE) 10/03/20 10/03/20 10/04/20 Range/Units 16:14 16:30 00:32 WBC (4.0-11.0) K/uL RBC (4.50-5.90) M/uL Hgb (13.0-17.0) g/dL Hct (38.0-50.0) % MCV (80.0-98.0) fL MCH (27.0-32.0) pg MCHC (31.0-37.0) g/dL RDW Std Deviation (28.0-62.0) fl RDW Coeff of Karma (11.0-15.0) % Plt Count (150-400) K/uL MPV (7.40-12.00) fL Neut % (Auto) (48.0-80.0) % Lymph % (Auto) (16.0-40.0) % [place] % (Auto) (0.0-15.0) % Eos % (Auto) (0.0-7.0) % Baso % (Auto) (0.0-1.5) % Neut # (Auto) (1.4-5.7) K/uL Lymph # (Auto) (0.6-2.4) K/uL [place] # (Auto) (0.0-0.8) K/uL Eos # (Auto) (0.0-0.7) K/uL Baso # (Auto) (0.0-0.1) K/uL Nucleated RBC % /100WBC Nucleated RBCs # K/uL INR 1.04 APTT 21.0 (18.6-31.3) SEC Lactate (0.20-2.00) mmol/L Sodium (136-148) mmol/L Potassium (3.5-5.1) mmol/L Chloride (98-107) mmol/L Carbon Dioxide (21.0-32.0) mmol/L BUN (7.0-18.0) mg/dL Creatinine (0.8-1.3) mg/dL Est Cr Clr Drug Dosing mL/min Estimated GFR (MDRD) ml/min Glucose (74-106) mg/dL Calcium (8.5-10.1) mg/dL Magnesium (1.8-2.4) mg/dL Total Bilirubin (0.2-1.0) mg/dL AST (15-37) IU/L ALT (14-63) IU/L Alkaline Phosphatase (46-116) U/L Total Protein (6.4-8.2) g/dL Albumin (3.4-5.0) g/dL Globulin (2.6-4.0) g/dL Albumin/Globulin Ratio (0.9-1.6) Lipase (73-393) U/L Urine Color YELLOW Urine Appearance CLEAR Urine pH 6.0 (5.0-8.0) Ur Specific [place] 1.020 (1.001-1.035) Urine Protein NEGATIVE (NEGATIVE) mg/dL Urine Glucose (UA) NEGATIVE (NEGATIVE) mg/dL Urine Ketones NEGATIVE (NEGATIVE) mg/dL Urine Occult Blood NEGATIVE (NEGATIVE) Urine Nitrite NEGATIVE (NEGATIVE) Urine Bilirubin NEGATIVE (NEGATIVE) Urine Urobilinogen 0.2 (<2.0) EU/dL Ur Leukocyte Esterase NEGATIVE (NEGATIVE) Influenza Type A RNA NEGATIVE (NEGATIVE) Influenza Type B RNA NEGATIVE (NEGATIVE) SARS-CoV-2 RNA (ETTA) NEGATIVE (NEGATIVE) 10/04/20 10/04/20 10/04/20 Range/Units 00:53 04:50 04:50 WBC 16.64 H (4.0-11.0) K/uL RBC 3.84 L (4.50-5.90) M/uL Hgb 11.7 L (13.0-17.0) g/dL Hct 36.5 L (38.0-50.0) % MCV 95.1 (80.0-98.0) fL MCH 30.5 (27.0-32.0) pg MCHC 32.1 (31.0-37.0) g/dL RDW Std Deviation 43.4 (28.0-62.0) fl RDW Coeff of Karma 13 (11.0-15.0) % Plt Count 238 (150-400) K/uL MPV 8.70 (7.40-12.00) fL Neut % (Auto) 86.1 H (48.0-80.0) % Lymph % (Auto) 8.2 L (16.0-40.0) % [place] % (Auto) 5.5 (0.0-15.0) % Eos % (Auto) 0.1 (0.0-7.0) % Baso % (Auto) 0.1 (0.0-1.5) % Neut # (Auto) 14.3 H (1.4-5.7) K/uL Lymph # (Auto) 1.4 (0.6-2.4) K/uL [place] # (Auto) 0.9 H (0.0-0.8) K/uL Eos # (Auto) 0.0 (0.0-0.7) K/uL Baso # (Auto) 0.0 (0.0-0.1) K/uL Nucleated RBC % 0.0 /100WBC Nucleated RBCs # 0 K/uL INR 1.14 APTT 34.8 H (18.6-31.3) SEC Lactate (0.20-2.00) mmol/L Sodium (136-148) mmol/L Potassium (3.5-5.1) mmol/L Chloride (98-107) mmol/L Carbon Dioxide (21.0-32.0) mmol/L BUN (7.0-18.0) mg/dL Creatinine (0.8-1.3) mg/dL Est Cr Clr Drug Dosing mL/min Estimated GFR (MDRD) ml/min Glucose (74-106) mg/dL Calcium (8.5-10.1) mg/dL Magnesium (1.8-2.4) mg/dL Total Bilirubin (0.2-1.0) mg/dL AST (15-37) IU/L ALT (14-63) IU/L Alkaline Phosphatase (46-116) U/L Total Protein (6.4-8.2) g/dL Albumin (3.4-5.0) g/dL Globulin (2.6-4.0) g/dL Albumin/Globulin Ratio (0.9-1.6) Lipase (73-393) U/L Urine Color Urine Appearance Urine pH (5.0-8.0) Ur Specific [place] (1.001-1.035) Urine Protein (NEGATIVE) mg/dL Urine Glucose (UA) (NEGATIVE) mg/dL Urine Ketones (NEGATIVE) mg/dL Urine Occult Blood (NEGATIVE) Urine Nitrite (NEGATIVE) Urine Bilirubin (NEGATIVE) Urine Urobilinogen (<2.0) EU/dL Ur Leukocyte Esterase (NEGATIVE) Influenza Type A RNA (NEGATIVE) Influenza Type B RNA (NEGATIVE) SARS-CoV-2 RNA (ETTA) (NEGATIVE) 10/04/20 Range/Units 04:50 WBC (4.0-11.0) K/uL RBC (4.50-5.90) M/uL Hgb (13.0-17.0) g/dL Hct (38.0-50.0) % MCV (80.0-98.0) fL MCH (27.0-32.0) pg MCHC (31.0-37.0) g/dL RDW Std Deviation (28.0-62.0) fl RDW Coeff of Karma (11.0-15.0) % Plt Count (150-400) K/uL MPV (7.40-12.00) fL Neut % (Auto) (48.0-80.0) % Lymph % (Auto) (16.0-40.0) % [place] % (Auto) (0.0-15.0) % Eos % (Auto) (0.0-7.0) % Baso % (Auto) (0.0-1.5) % Neut # (Auto) (1.4-5.7) K/uL Lymph # (Auto) (0.6-2.4) K/uL [place] # (Auto) (0.0-0.8) K/uL Eos # (Auto) (0.0-0.7) K/uL Baso # (Auto) (0.0-0.1) K/uL Nucleated RBC % /100WBC Nucleated RBCs # K/uL INR APTT (18.6-31.3) SEC Lactate (0.20-2.00) mmol/L Sodium 140 (136-148) mmol/L Potassium 4.4 (3.5-5.1) mmol/L Chloride 104 (98-107) mmol/L Carbon Dioxide 29.0 (21.0-32.0) mmol/L BUN 15 (7.0-18.0) mg/dL Creatinine 1.2 (0.8-1.3) mg/dL Est Cr Clr Drug Dosing 53.23 mL/min Estimated GFR (MDRD) 58.7 ml/min Glucose 120 H (74-106) mg/dL Calcium 7.8 L (8.5-10.1) mg/dL Magnesium (1.8-2.4) mg/dL Total Bilirubin (0.2-1.0) mg/dL AST (15-37) IU/L ALT (14-63) IU/L Alkaline Phosphatase (46-116) U/L Total Protein (6.4-8.2) g/dL Albumin (3.4-5.0) g/dL Globulin (2.6-4.0) g/dL Albumin/Globulin Ratio (0.9-1.6) Lipase (73-393) U/L Urine Color Urine Appearance Urine pH (5.0-8.0) Ur Specific [place] (1.001-1.035) Urine Protein (NEGATIVE) mg/dL Urine Glucose (UA) (NEGATIVE) mg/dL Urine Ketones (NEGATIVE) mg/dL Urine Occult Blood (NEGATIVE) Urine Nitrite (NEGATIVE) Urine Bilirubin (NEGATIVE) Urine Urobilinogen (<2.0) EU/dL Ur Leukocyte Esterase (NEGATIVE) Influenza Type A RNA (NEGATIVE) Influenza Type B RNA (NEGATIVE) SARS-CoV-2 RNA (ETTA) (NEGATIVE) Med Orders - Current: Current Medications Lactated Ringer's (Ringers, Lactated) 1,000 mls @ 999 mls/hr IV ASDIRECTED DALE Last Admin: 10/04/20 07:58 Dose: 999 mls/hr Documented by: Heparin Sodium/Sodium Chloride (Heparin 25,000 Units In 1/2 Ns 500 Ml) 500 mls @ 25.59 mls/hr IV TITRATE DALE; Protocol Last Titration: 10/04/20 05:48 Dose: 20 units/kg/hr, 31.987 mls/hr Documented by: Lactated Ringer's (Ringers, Lactated) 1,000 mls @ 125 mls/hr IV ASDIRECTED DALE Last Admin: 10/04/20 00:24 Dose: 125 mls/hr Documented by: Pantoprazole Sodium 40 mg/ (Sodium Chloride) 10 mls @ 300 mls/hr IV Q24H [facility] Last Admin: 10/04/20 01:11 Dose: 300 mls/hr Documented by: Morphine Sulfate (Morphine 2 Mg/Ml Syringe) 2 mg IVPUSH Q3H PRN PRN Reason: Pain Ondansetron HCl (Ondansetron 4 Mg/2 Ml Sdv) 4 mg IVPUSH Q4H PRN PRN Reason: Nausea/Vomiting Sodium Chloride (Sodium Chloride 0.9% 10 Ml Syringe) 10 ml FLUSH ASDIRECTED PRN PRN Reason: Keep Vein Open Last Admin: 10/03/20 16:20 Dose: 10 ml Documented by: Sodium Chloride (Sodium Chloride 0.9% 2.5 Ml Syringe) 2.5 ml FLUSH ASDIRECTED PRN PRN Reason: Keep Vein Open Last Admin: 10/03/20 16:20 Dose: 2.5 ml Documented by: Warfarin Sodium (Warfarin Ask Dosing) 1 each PO DAILY [facility] Last Admin: 10/04/20 09:45 Dose: Not Given Documented by: Warfarin Sodium (Warfarin 5 Mg Tab) 5 mg PO ONETIME ONE Stop: 10/04/20 14:01 Discontinued Medications Heparin Sodium (Porcine) (Heparin Sodium 5,000 Units/Ml Vial) 5,000 units IVPUSH ONETIME ONE Stop: 10/03/20 22:02 Last Admin: 10/03/20 22:30 Dose: 5,000 units Documented by: Heparin Sodium (Porcine) (Heparin Sodium 5,000 Units/Ml Vial) 2,500 units IVPUSH ONETIME ONE Stop: 10/04/20 05:31 Last Admin: 10/04/20 05:46 Dose: 2,500 units Documented by: Iopamidol (Iopamidol 755 Mg/Ml 500 Ml Multipack Bottle) 100 ml IVPUSH ONETIME ONE Stop: 10/03/20 17:26 Last Admin: 10/03/20 17:25 Dose: 100 ml Documented by: Morphine Sulfate (Morphine 4 Mg/Ml Syringe) 4 mg IVPUSH ONETIME ONE Stop: 10/03/20 19:16 Last Admin: 10/03/20 19:55 Dose: 4 mg Documented by: Ondansetron HCl (Ondansetron 4 Mg/2 Ml Sdv) 4 mg IVPUSH ONETIME ONE Stop: 10/03/20 16:12 Last Admin: 10/03/20 16:19 Dose: 4 mg Documented by: - Exam General: Alert, Oriented, Cooperative HEENT: Pupils Equal Lungs: Normal Respiratory Effort Cardiovascular: Regular Rate GI/Abdominal Exam: Soft, Non-Tender, No Distention, No Mass Sepsis Event Note - Evaluation Sepsis Screening Result: No Definite Risk - Focused Exam Vital Signs: Vital Signs Temp Pulse Resp BP Pulse Ox Pulse Ox 10/04/20 08:00 37.3 C 94 14 120/60 100 10/04/20 04:27 36.6 C 79 18 118/63 96 10/04/20 00:59 96 10/04/20 00:06 36.8 C 71 18 131/70 95 Consult PN Assessment/Plan Procedures: Procedures ASSAY OF LIPASE (01/11/19) ASSAY OF TROPONIN QUANT (01/03/18) ASSAY THYROID STIM HORMONE (01/03/18) BLOOD CULTURE FOR BACTERIA (01/03/18) C-REACTIVE PROTEIN (01/13/15) CARDIAC REHAB/MONITOR (09/14/18) COMPLETE CBC AUTOMATED (01/11/19) COMPLETE CBC W/AUTO DIFF WBC (01/03/18) COMPREHEN METABOLIC PANEL (01/11/19) CT ABD & PELV 1/> REGNS (01/11/19) CT ABD & PELV W/CONTRAST (01/13/15) CT ANGIOGRAPHY NECK (09/25/18) CT HEAD/BRAIN W/O DYE (01/03/18) CT MAXILLOFACIAL W/O DYE (08/07/15) EEG AWAKE AND ASLEEP (01/18/18) ELECTROCARDIOGRAM TRACING (01/03/18) EMERGENCY DEPT VISIT (01/03/18) EMERGENCY DEPT VISIT (01/13/15) EXTRACRANIAL BILAT STUDY (09/17/18) GLYCOSYLATED HEMOGLOBIN TEST (01/03/18) HYDRATE IV INFUSION ADD-ON (01/03/18) LIPID PANEL (01/03/18) METABOLIC PANEL TOTAL CA (09/21/18) MRI BRAIN STEM W/O & W/DYE (01/19/18) OFFICE O/P NEW LOW 30-44 MIN (01/15/15) POLYSOM 6/>YRS CPAP 4/> PARM (02/26/20) PROTHROMBIN TIME (01/03/18) ROUTINE VENIPUNCTURE (01/11/19) THER/PROPH/DIAG INJ IV PUSH (01/03/18) THER/PROPH/DIAG INJ SC/IM (01/03/18) THROMBOPLASTIN TIME PARTIAL (01/03/18) TTE W/DOPPLER COMPLETE (01/03/18) TX/PRO/DX INJ NEW DRUG ADDON (01/13/15) TX/PRO/DX INJ SAME DRUG UNDERGROUND FOREMAN (01/03/18) URINALYSIS AUTO W/SCOPE (01/03/18) US EXAM OF HEAD AND NECK (10/15/15) X-RAY EXAM CHEST 1 VIEW (01/03/18) (1) Splenic infarct SNOMED Code(s): 36155322 Code(s): D73.5 - INFARCTION OF SPLEEN Current Visit: Yes Problem List Initiated/Reviewed/Updated: Yes Plan: Patient's WBC is down today to 16K. Would continue heparin drip and Coumadin. Advance diet as tolerated. Ok to discharge home once tolerating a po diet and therapeutic anticoagulation is able to be sustained with Coumadin per medicine's discretion. Will continue to follow along while in house. Ok with performing hypercoagulability work up with hematology as outpatient.
[2020-10-04] MEDS ORDERED: Warfarin 5 MG Tab PO ONE (14:00)
--- NOTE | 2020-10-04 14:04 | PCM.PN ---
- General Info Date of Service: 10/04/20 - Review of Systems Systems Review Comment:: abdominal pain improving, no nausea with breakfast, - Patient Data Vitals - Most Recent: Last Vital Signs Temp 37.2 C 10/04/20 11:19 Pulse 71 10/04/20 11:19 Resp 14 10/04/20 11:19 BP 101/50 L 10/04/20 11:19 Pulse Ox 97 10/04/20 11:19 Weight - Most Recent: 79.968 kg I&O - Last 24 Hours: Intake & Output 10/03/20 10/04/20 10/04/20 22:59 06:59 14:59 Intake Total 770 Output Total 460 Balance 310 Lab Results Last 24 Hours: Laboratory Results - last 24 hr 10/03/20 10/03/20 10/03/20 Range/Units 16:14 16:14 16:14 WBC 22.32 H (4.0-11.0) K/uL RBC 4.28 L (4.50-5.90) M/uL Hgb 13.4 (13.0-17.0) g/dL Hct 40.4 (38.0-50.0) % MCV 94.4 (80.0-98.0) fL MCH 31.3 (27.0-32.0) pg MCHC 33.2 (31.0-37.0) g/dL RDW Std Deviation 43.0 (28.0-62.0) fl RDW Coeff of Karma 13 (11.0-15.0) % Plt Count 250 (150-400) K/uL MPV 8.50 (7.40-12.00) fL Neut % (Auto) 92.3 H (48.0-80.0) % Lymph % (Auto) 2.8 L (16.0-40.0) % [place] % (Auto) 4.9 (0.0-15.0) % Eos % (Auto) 0.0 (0.0-7.0) % Baso % (Auto) 0.0 (0.0-1.5) % Neut # (Auto) 20.6 H (1.4-5.7) K/uL Lymph # (Auto) 0.6 (0.6-2.4) K/uL [place] # (Auto) 1.1 H (0.0-0.8) K/uL Eos # (Auto) 0.0 (0.0-0.7) K/uL Baso # (Auto) 0.0 (0.0-0.1) K/uL Nucleated RBC % 0.0 /100WBC Nucleated RBCs # 0 K/uL INR APTT (18.6-31.3) SEC Lactate 1.7 (0.20-2.00) mmol/L Sodium 138 (136-148) mmol/L Potassium 3.8 (3.5-5.1) mmol/L Chloride 102 (98-107) mmol/L Carbon Dioxide 25.1 (21.0-32.0) mmol/L BUN 16 (7.0-18.0) mg/dL Creatinine 1.2 (0.8-1.3) mg/dL Est Cr Clr Drug Dosing 51.55 mL/min Estimated GFR (MDRD) 58.7 ml/min Glucose 152 H (74-106) mg/dL Calcium 8.3 L (8.5-10.1) mg/dL Magnesium 2.1 (1.8-2.4) mg/dL Total Bilirubin 0.7 (0.2-1.0) mg/dL AST 20 (15-37) IU/L ALT 24 (14-63) IU/L Alkaline Phosphatase 70 (46-116) U/L Total Protein 7.6 (6.4-8.2) g/dL Albumin 3.2 L (3.4-5.0) g/dL Globulin 4.4 H (2.6-4.0) g/dL Albumin/Globulin Ratio 0.7 L (0.9-1.6) Lipase 79 (73-393) U/L Urine Color Urine Appearance Urine pH (5.0-8.0) Ur Specific [place] (1.001-1.035) Urine Protein (NEGATIVE) mg/dL Urine Glucose (UA) (NEGATIVE) mg/dL Urine Ketones (NEGATIVE) mg/dL Urine Occult Blood (NEGATIVE) Urine Nitrite (NEGATIVE) Urine Bilirubin (NEGATIVE) Urine Urobilinogen (<2.0) EU/dL Ur Leukocyte Esterase (NEGATIVE) Influenza Type A RNA (NEGATIVE) Influenza Type B RNA (NEGATIVE) SARS-CoV-2 RNA ([place]) (NEGATIVE) 10/03/20 10/03/2010/04/21 Range/Units 16:14 16:30 00:32 WBC (4.0-11.0) K/uL RBC (4.50-5.90) M/uL Hgb (13.0-17.0) g/dL Hct (38.0-50.0) % MCV (80.0-98.0) fL MCH (27.0-32.0) pg MCHC (31.0-37.0) g/dL RDW Std Deviation (28.0-62.0) fl RDW Coeff of Karma (11.0-15.0) % Plt Count (150-400) K/uL MPV (7.40-12.00) fL Neut % (Auto) (48.0-80.0) % Lymph % (Auto) (16.0-40.0) % [place] % (Auto) (0.0-15.0) % Eos % (Auto) (0.0-7.0) % Baso % (Auto) (0.0-1.5) % Neut # (Auto) (1.4-5.7) K/uL Lymph # (Auto) (0.6-2.4) K/uL [place] # (Auto) (0.0-0.8) K/uL Eos # (Auto) (0.0-0.7) K/uL Baso # (Auto) (0.0-0.1) K/uL Nucleated RBC % /100WBC Nucleated RBCs # K/uL INR 1.04 APTT 21.0 (18.6-31.3) SEC Lactate (0.20-2.00) mmol/L Sodium (136-148) mmol/L Potassium (3.5-5.1) mmol/L Chloride (98-107) mmol/L Carbon Dioxide (21.0-32.0) mmol/L BUN (7.0-18.0) mg/dL Creatinine (0.8-1.3) mg/dL Est Cr Clr Drug Dosing mL/min Estimated GFR (MDRD) ml/min Glucose (74-106) mg/dL Calcium (8.5-10.1) mg/dL Magnesium (1.8-2.4) mg/dL Total Bilirubin (0.2-1.0) mg/dL AST (15-37) IU/L ALT (14-63) IU/L Alkaline Phosphatase (46-116) U/L Total Protein (6.4-8.2) g/dL Albumin (3.4-5.0) g/dL Globulin (2.6-4.0) g/dL Albumin/Globulin Ratio (0.9-1.6) Lipase (73-393) U/L Urine Color YELLOW Urine Appearance CLEAR Urine pH 6.0 (5.0-8.0) Ur Specific [place] 1.020 (1.001-1.035) Urine Protein NEGATIVE (NEGATIVE) mg/dL Urine Glucose (UA) NEGATIVE (NEGATIVE) mg/dL Urine Ketones NEGATIVE (NEGATIVE) mg/dL Urine Occult Blood NEGATIVE (NEGATIVE) Urine Nitrite NEGATIVE (NEGATIVE) Urine Bilirubin NEGATIVE (NEGATIVE) Urine Urobilinogen 0.2 (<2.0) EU/dL Ur Leukocyte Esterase NEGATIVE (NEGATIVE) Influenza Type A RNA NEGATIVE (NEGATIVE) Influenza Type B RNA NEGATIVE (NEGATIVE) SARS-CoV-2 RNA ([place]) NEGATIVE (NEGATIVE) 10/04/20 10/04/20 10/04/20 Range/Units 00:53 04:50 04:50 WBC 16.64 H (4.0-11.0) K/uL RBC 3.84 L (4.50-5.90) M/uL Hgb 11.7 L (13.0-17.0) g/dL Hct 36.5 L (38.0-50.0) % MCV 95.1 (80.0-98.0) fL MCH 30.5 (27.0-32.0) pg MCHC 32.1 (31.0-37.0) g/dL RDW Std Deviation 43.4 (28.0-62.0) fl RDW Coeff of Karma 13 (11.0-15.0) % Plt Count 238 (150-400) K/uL MPV 8.70 (7.40-12.00) fL Neut % (Auto) 86.1 H (48.0-80.0) % Lymph % (Auto) 8.2 L (16.0-40.0) % [place] % (Auto) 5.5 (0.0-15.0) % Eos % (Auto) 0.1 (0.0-7.0) % Baso % (Auto) 0.1 (0.0-1.5) % Neut # (Auto) 14.3 H (1.4-5.7) K/uL Lymph # (Auto) 1.4 (0.6-2.4) K/uL [place] # (Auto) 0.9 H (0.0-0.8) K/uL Eos # (Auto) 0.0 (0.0-0.7) K/uL Baso # (Auto) 0.0 (0.0-0.1) K/uL Nucleated RBC % 0.0 /100WBC Nucleated RBCs # 0 K/uL INR 1.14 APTT 34.8 H (18.6-31.3) SEC Lactate (0.20-2.00) mmol/L Sodium (136-148) mmol/L Potassium (3.5-5.1) mmol/L Chloride (98-107) mmol/L Carbon Dioxide (21.0-32.0) mmol/L BUN (7.0-18.0) mg/dL Creatinine (0.8-1.3) mg/dL Est Cr Clr Drug Dosing mL/min Estimated GFR (MDRD) ml/min Glucose (74-106) mg/dL Calcium (8.5-10.1) mg/dL Magnesium (1.8-2.4) mg/dL Total Bilirubin (0.2-1.0) mg/dL AST (15-37) IU/L ALT (14-63) IU/L Alkaline Phosphatase (46-116) U/L Total Protein (6.4-8.2) g/dL Albumin (3.4-5.0) g/dL Globulin (2.6-4.0) g/dL Albumin/Globulin Ratio (0.9-1.6) Lipase (73-393) U/L Urine Color Urine Appearance Urine pH (5.0-8.0) Ur Specific [place] (1.001-1.035) Urine Protein (NEGATIVE) mg/dL Urine Glucose (UA) (NEGATIVE) mg/dL Urine Ketones (NEGATIVE) mg/dL Urine Occult Blood (NEGATIVE) Urine Nitrite (NEGATIVE) Urine Bilirubin (NEGATIVE) Urine Urobilinogen (<2.0) EU/dL Ur Leukocyte Esterase (NEGATIVE) Influenza Type A RNA (NEGATIVE) Influenza Type B RNA (NEGATIVE) SARS-CoV-2 RNA ([place]) (NEGATIVE) 10/04/20 10/04/20 Range/Units 04:50 10:56 WBC (4.0-11.0) K/uL RBC (4.50-5.90) M/uL Hgb (13.0-17.0) g/dL Hct (38.0-50.0) % MCV (80.0-98.0) fL MCH (27.0-32.0) pg MCHC (31.0-37.0) g/dL RDW Std Deviation (28.0-62.0) fl RDW Coeff of Karma (11.0-15.0) % Plt Count (150-400) K/uL MPV (7.40-12.00) fL Neut % (Auto) (48.0-80.0) % Lymph % (Auto) (16.0-40.0) % [place] % (Auto) (0.0-15.0) % Eos % (Auto) (0.0-7.0) % Baso % (Auto) (0.0-1.5) % Neut # (Auto) (1.4-5.7) K/uL Lymph # (Auto) (0.6-2.4) K/uL [place] # (Auto) (0.0-0.8) K/uL Eos # (Auto) (0.0-0.7) K/uL Baso # (Auto) (0.0-0.1) K/uL Nucleated RBC % /100WBC Nucleated RBCs # K/uL INR APTT 42.8 H (18.6-31.3) SEC Lactate (0.20-2.00) mmol/L Sodium 140 (136-148) mmol/L Potassium 4.4 (3.5-5.1) mmol/L Chloride 104 (98-107) mmol/L Carbon Dioxide 29.0 (21.0-32.0) mmol/L BUN 15 (7.0-18.0) mg/dL Creatinine 1.2 (0.8-1.3) mg/dL Est Cr Clr Drug Dosing 53.23 mL/min Estimated GFR (MDRD) 58.7 ml/min Glucose 120 H (74-106) mg/dL Calcium 7.8 L (8.5-10.1) mg/dL Magnesium (1.8-2.4) mg/dL Total Bilirubin (0.2-1.0) mg/dL AST (15-37) IU/L ALT (14-63) IU/L Alkaline Phosphatase (46-116) U/L Total Protein (6.4-8.2) g/dL Albumin (3.4-5.0) g/dL Globulin (2.6-4.0) g/dL Albumin/Globulin Ratio (0.9-1.6) Lipase (73-393) U/L Urine Color Urine Appearance Urine pH (5.0-8.0) Ur Specific [place] (1.001-1.035) Urine Protein (NEGATIVE) mg/dL Urine Glucose (UA) (NEGATIVE) mg/dL Urine Ketones (NEGATIVE) mg/dL Urine Occult Blood (NEGATIVE) Urine Nitrite (NEGATIVE) Urine Bilirubin (NEGATIVE) Urine Urobilinogen (<2.0) EU/dL Ur Leukocyte Esterase (NEGATIVE) Influenza Type A RNA (NEGATIVE) Influenza Type B RNA (NEGATIVE) SARS-CoV-2 RNA ([place]) (NEGATIVE) Med Orders - Current: Current Medications Lactated Ringer's (Ringers, Lactated) 1,000 mls @ 999 mls/hr IV ASDIRECTED [facility] Last Admin: 10/04/20 07:58 Dose: 999 mls/hr Documented by: Heparin Sodium/Sodium Chloride (Heparin 25,000 Units In 1/2 Ns 500 Ml) 500 mls @ 25.59 mls/hr IV TITRATE [place]; Protocol Last Titration: 10/04/20 12:01 Dose: 22 units/kg/hr, 35.186 mls/hr Documented by: Lactated Ringer's (Ringers, Lactated) 1,000 mls @ 125 mls/hr IV ASDIRECTED [facility] Last Admin: 10/04/20 00:24 Dose: 125 mls/hr Documented by: Pantoprazole Sodium 40 mg/ (Sodium Chloride) 10 mls @ 300 mls/hr IV Q24H [facility] Last Admin: 10/04/20 01:11 Dose: 300 mls/hr Documented by: Morphine Sulfate (Morphine 2 Mg/Ml Syringe) 2 mg IVPUSH Q3H PRN PRN Reason: Pain Ondansetron HCl (Ondansetron 4 Mg/2 Ml Sdv) 4 mg IVPUSH Q4H PRN PRN Reason: Nausea/Vomiting Psyllium Husk Powder Sugar Free 5.85 Gm Packet 1 each PO DAILY [facility] Sodium Chloride (Sodium Chloride 0.9% 10 Ml Syringe) 10 ml FLUSH ASDIRECTED PRN PRN Reason: Keep Vein Open Last Admin: 10/03/20 16:20 Dose: 10 ml Documented by: Sodium Chloride (Sodium Chloride 0.9% 2.5 Ml Syringe) 2.5 ml FLUSH ASDIRECTED PRN PRN Reason: Keep Vein Open Last Admin: 10/03/20 16:20 Dose: 2.5 ml Documented by: Warfarin Sodium (Warfarin Ask Dosing) 1 each PO DAILY [facility] Last Admin: 10/04/20 09:45 Dose: Not Given Documented by: Discontinued Medications Heparin Sodium (Porcine) (Heparin Sodium 5,000 Units/Ml Vial) 5,000 units IVPUSH ONETIME ONE Stop: 10/03/20 22:02 Last Admin: 10/03/20 22:30 Dose: 5,000 units Documented by: Heparin Sodium (Porcine) (Heparin Sodium 5,000 Units/Ml Vial) 2,500 units IVPUSH ONETIME ONE Stop: 10/04/20 05:31 Last Admin: 10/04/20 05:46 Dose: 2,500 units Documented by: Heparin Sodium (Porcine) (Heparin Sodium 5,000 Units/Ml Vial) 1,500 units IVPUSH .BOLUS ONE Stop: 10/04/20 11:58 Last Admin: 10/04/20 12:09 Dose: 1,500 units Documented by: Iopamidol (Iopamidol 755 Mg/Ml 500 Ml Multipack Bottle) 100 ml IVPUSH ONETIME ONE Stop: 10/03/20 17:26 Last Admin: 10/03/20 17:25 Dose: 100 ml Documented by: Morphine Sulfate (Morphine 4 Mg/Ml Syringe) 4 mg IVPUSH ONETIME ONE Stop: 10/03/20 19:16 Last Admin: 10/03/20 19:55 Dose: 4 mg Documented by: Ondansetron HCl (Ondansetron 4 Mg/2 Ml Sdv) 4 mg IVPUSH ONETIME ONE Stop: 10/03/20 16:12 Last Admin: 10/03/20 16:19 Dose: 4 mg Documented by: Warfarin Sodium (Warfarin 5 Mg Tab) 5 mg PO ONETIME ONE Stop: 10/04/20 14:01 Last Admin: 10/04/20 13:26 Dose: 5 mg Documented by: - Exam General: Alert, Oriented Neck: Supple Lungs: Clear to Auscultation, Normal Respiratory Effort Cardiovascular: Regular Rate, Regular Rhythm GI/Abdominal Exam: Soft, Non-Tender, No Distention Extremities: Non-Tender, No Pedal Edema Skin: Warm, Dry, Intact Neurological: No New Focal Deficit - Patient Data Lab Results Last 24 hrs: Laboratory Results - last 24 hr 10/03/20 10/03/20 10/03/20 Range/Units 16:14 16:14 16:14 WBC 22.32 H (4.0-11.0) K/uL RBC 4.28 L (4.50-5.90) M/uL Hgb 13.4 (13.0-17.0) g/dL Hct 40.4 (38.0-50.0) % MCV 94.4 (80.0-98.0) fL MCH 31.3 (27.0-32.0) pg MCHC 33.2 (31.0-37.0) g/dL RDW Std Deviation 43.0 (28.0-62.0) fl RDW Coeff of Karma 13 (11.0-15.0) % Plt Count 250 (150-400) K/uL MPV 8.50 (7.40-12.00) fL Neut % (Auto) 92.3 H (48.0-80.0) % Lymph % (Auto) 2.8 L (16.0-40.0) % [place] % (Auto) 4.9 (0.0-15.0) % Eos % (Auto) 0.0 (0.0-7.0) % Baso % (Auto) 0.0 (0.0-1.5) % Neut # (Auto) 20.6 H (1.4-5.7) K/uL Lymph # (Auto) 0.6 (0.6-2.4) K/uL [place] # (Auto) 1.1 H (0.0-0.8) K/uL Eos # (Auto) 0.0 (0.0-0.7) K/uL Baso # (Auto) 0.0 (0.0-0.1) K/uL Nucleated RBC % 0.0 /100WBC Nucleated RBCs # 0 K/uL INR APTT (18.6-31.3) SEC Lactate 1.7 (0.20-2.00) mmol/L Sodium 138 (136-148) mmol/L Potassium 3.8 (3.5-5.1) mmol/L Chloride 102 (98-107) mmol/L Carbon Dioxide 25.1 (21.0-32.0) mmol/L BUN 16 (7.0-18.0) mg/dL Creatinine 1.2 (0.8-1.3) mg/dL Est Cr Clr Drug Dosing 51.55 mL/min Estimated GFR (MDRD) 58.7 ml/min Glucose 152 H (74-106) mg/dL Calcium 8.3 L (8.5-10.1) mg/dL Magnesium 2.1 (1.8-2.4) mg/dL Total Bilirubin 0.7 (0.2-1.0) mg/dL AST 20 (15-37) IU/L ALT 24 (14-63) IU/L Alkaline Phosphatase 70 (46-116) U/L Total Protein 7.6 (6.4-8.2) g/dL Albumin 3.2 L (3.4-5.0) g/dL Globulin 4.4 H (2.6-4.0) g/dL Albumin/Globulin Ratio 0.7 L (0.9-1.6) Lipase 79 (73-393) U/L Urine Color Urine Appearance Urine pH (5.0-8.0) Ur Specific [place] (1.001-1.035) Urine Protein (NEGATIVE) mg/dL Urine Glucose (UA) (NEGATIVE) mg/dL Urine Ketones (NEGATIVE) mg/dL Urine Occult Blood (NEGATIVE) Urine Nitrite (NEGATIVE) Urine Bilirubin (NEGATIVE) Urine Urobilinogen (<2.0) EU/dL Ur Leukocyte Esterase (NEGATIVE) Influenza Type A RNA (NEGATIVE) Influenza Type B RNA (NEGATIVE) SARS-CoV-2 RNA ([place]) (NEGATIVE) 10/03/20 10/03/20 10/04/20 Range/Units 16:14 16:30 00:32 WBC (4.0-11.0) K/uL RBC (4.50-5.90) M/uL Hgb (13.0-17.0) g/dL Hct (38.0-50.0) % MCV (80.0-98.0) fL MCH (27.0-32.0) pg MCHC (31.0-37.0) g/dL RDW Std Deviation (28.0-62.0) fl RDW Coeff of Karma (11.0-15.0) % Plt Count (150-400) K/uL MPV (7.40-12.00) fL Neut % (Auto) (48.0-80.0) % Lymph % (Auto) (16.0-40.0) % [place] % (Auto) (0.0-15.0) % Eos % (Auto) (0.0-7.0) % Baso % (Auto) (0.0-1.5) % Neut # (Auto) (1.4-5.7) K/uL Lymph # (Auto) (0.6-2.4) K/uL [place] # (Auto) (0.0-0.8) K/uL Eos # (Auto) (0.0-0.7) K/uL Baso # (Auto) (0.0-0.1) K/uL Nucleated RBC % /100WBC Nucleated RBCs # K/uL INR 1.04 APTT 21.0 (18.6-31.3) SEC Lactate (0.20-2.00) mmol/L Sodium (136-148) mmol/L Potassium (3.5-5.1) mmol/L Chloride (98-107) mmol/L Carbon Dioxide (21.0-32.0) mmol/L BUN (7.0-18.0) mg/dL Creatinine (0.8-1.3) mg/dL Est Cr Clr Drug Dosing mL/min Estimated GFR (MDRD) ml/min Glucose (74-106) mg/dL Calcium (8.5-10.1) mg/dL Magnesium (1.8-2.4) mg/dL Total Bilirubin (0.2-1.0) mg/dL AST (15-37) IU/L ALT (14-63) IU/L Alkaline Phosphatase (46-116) U/L Total Protein (6.4-8.2) g/dL Albumin (3.4-5.0) g/dL Globulin (2.6-4.0) g/dL Albumin/Globulin Ratio (0.9-1.6) Lipase (73-393) U/L Urine Color YELLOW Urine Appearance CLEAR Urine pH 6.0 (5.0-8.0) Ur Specific [place] 1.020 (1.001-1.035) Urine Protein NEGATIVE (NEGATIVE) mg/dL Urine Glucose (UA) NEGATIVE (NEGATIVE) mg/dL Urine Ketones NEGATIVE (NEGATIVE) mg/dL Urine Occult Blood NEGATIVE (NEGATIVE) Urine Nitrite NEGATIVE (NEGATIVE) Urine Bilirubin NEGATIVE (NEGATIVE) Urine Urobilinogen 0.2 (<2.0) EU/dL Ur Leukocyte Esterase NEGATIVE (NEGATIVE) Influenza Type A RNA NEGATIVE (NEGATIVE) Influenza Type B RNA NEGATIVE (NEGATIVE) SARS-CoV-2 RNA ([place]) NEGATIVE (NEGATIVE) 10/04/20 10/04/20 10/04/20 Range/Units 00:53 04:50 04:50 WBC 16.64 H (4.0-11.0) K/uL RBC 3.84 L (4.50-5.90) M/uL Hgb 11.7 L (13.0-17.0) g/dL Hct 36.5 L (38.0-50.0) % MCV 95.1 (80.0-98.0) fL MCH 30.5 (27.0-32.0) pg MCHC 32.1 (31.0-37.0) g/dL RDW Std Deviation 43.4 (28.0-62.0) fl RDW Coeff of Karma 13 (11.0-15.0) % Plt Count 238 (150-400) K/uL MPV 8.70 (7.40-12.00) fL Neut % (Auto) 86.1 H (48.0-80.0) % Lymph % (Auto) 8.2 L (16.0-40.0) % [place] % (Auto) 5.5 (0.0-15.0) % Eos % (Auto) 0.1 (0.0-7.0) % Baso % (Auto) 0.1 (0.0-1.5) % Neut # (Auto) 14.3 H (1.4-5.7) K/uL Lymph # (Auto) 1.4 (0.6-2.4) K/uL [place] # (Auto) 0.9 H (0.0-0.8) K/uL Eos # (Auto) 0.0 (0.0-0.7) K/uL Baso # (Auto) 0.0 (0.0-0.1) K/uL Nucleated RBC % 0.0 /100WBC Nucleated RBCs # 0 K/uL INR 1.14 APTT 34.8 H (18.6-31.3) SEC Lactate (0.20-2.00) mmol/L Sodium (136-148) mmol/L Potassium (3.5-5.1) mmol/L Chloride (98-107) mmol/L Carbon Dioxide (21.0-32.0) mmol/L BUN (7.0-18.0) mg/dL Creatinine (0.8-1.3) mg/dL Est Cr Clr Drug Dosing mL/min Estimated GFR (MDRD) ml/min Glucose (74-106) mg/dL Calcium (8.5-10.1) mg/dL Magnesium (1.8-2.4) mg/dL Total Bilirubin (0.2-1.0) mg/dL AST (15-37) IU/L ALT (14-63) IU/L Alkaline Phosphatase (46-116) U/L Total Protein (6.4-8.2) g/dL Albumin (3.4-5.0) g/dL Globulin (2.6-4.0) g/dL Albumin/Globulin Ratio (0.9-1.6) Lipase (73-393) U/L Urine Color Urine Appearance Urine pH (5.0-8.0) Ur Specific [place] (1.001-1.035) Urine Protein (NEGATIVE) mg/dL Urine Glucose (UA) (NEGATIVE) mg/dL Urine Ketones (NEGATIVE) mg/dL Urine Occult Blood (NEGATIVE) Urine Nitrite (NEGATIVE) Urine Bilirubin (NEGATIVE) Urine Urobilinogen (<2.0) EU/dL Ur Leukocyte Esterase (NEGATIVE) Influenza Type A RNA (NEGATIVE) Influenza Type B RNA (NEGATIVE) SARS-CoV-2 RNA ([place]) (NEGATIVE) 10/04/20 10/04/20 Range/Units 04:50 10:56 WBC (4.0-11.0) K/uL RBC (4.50-5.90) M/uL Hgb (13.0-17.0) g/dL Hct (38.0-50.0) % MCV (80.0-98.0) fL MCH (27.0-32.0) pg MCHC (31.0-37.0) g/dL RDW Std Deviation (28.0-62.0) fl RDW Coeff of Karma (11.0-15.0) % Plt Count (150-400) K/uL MPV (7.40-12.00) fL Neut % (Auto) (48.0-80.0) % Lymph % (Auto) (16.0-40.0) % [place] % (Auto) (0.0-15.0) % Eos % (Auto) (0.0-7.0) % Baso % (Auto) (0.0-1.5) % Neut # (Auto) (1.4-5.7) K/uL Lymph # (Auto) (0.6-2.4) K/uL [place] # (Auto) (0.0-0.8) K/uL Eos # (Auto) (0.0-0.7) K/uL Baso # (Auto) (0.0-0.1) K/uL Nucleated RBC % /100WBC Nucleated RBCs # K/uL INR APTT 42.8 H (18.6-31.3) SEC Lactate (0.20-2.00) mmol/L Sodium 140 (136-148) mmol/L Potassium 4.4 (3.5-5.1) mmol/L Chloride 104 (98-107) mmol/L Carbon Dioxide 29.0 (21.0-32.0) mmol/L BUN 15 (7.0-18.0) mg/dL Creatinine 1.2 (0.8-1.3) mg/dL Est Cr Clr Drug Dosing 53.23 mL/min Estimated GFR (MDRD) 58.7 ml/min Glucose 120 H (74-106) mg/dL Calcium 7.8 L (8.5-10.1) mg/dL Magnesium (1.8-2.4) mg/dL Total Bilirubin (0.2-1.0) mg/dL AST (15-37) IU/L ALT (14-63) IU/L Alkaline Phosphatase (46-116) U/L Total Protein (6.4-8.2) g/dL Albumin (3.4-5.0) g/dL Globulin (2.6-4.0) g/dL Albumin/Globulin Ratio (0.9-1.6) Lipase (73-393) U/L Urine Color Urine Appearance Urine pH (5.0-8.0) Ur Specific [place] (1.001-1.035) Urine Protein (NEGATIVE) mg/dL Urine Glucose (UA) (NEGATIVE) mg/dL Urine Ketones (NEGATIVE) mg/dL Urine Occult Blood (NEGATIVE) Urine Nitrite (NEGATIVE) Urine Bilirubin (NEGATIVE) Urine Urobilinogen (<2.0) EU/dL Ur Leukocyte Esterase (NEGATIVE) Influenza Type A RNA (NEGATIVE) Influenza Type B RNA (NEGATIVE) SARS-CoV-2 RNA ([place]) (NEGATIVE) Result Diagrams: 10/04/20 04:50 10/04/20 04:50 Sepsis Event Note - Evaluation Sepsis Screening Result: No Definite Risk - Focused Exam Vital Signs: Vital Signs Temp Pulse Resp BP Pulse Ox 10/04/20 11:19 37.2 C 71 14 101/50 L 97 10/04/20 08:00 37.3 C 94 14 120/60 100 10/04/20 04:27 36.6 C 79 18 118/63 96 - Problem List Review Problem List Initiated/Reviewed/Updated: Yes - My Orders Last 24 Hours: My Active Orders 10/03/20 Dinner Regular Diet [DIET] 10/03/20 20:30 Telemetry Monitoring [Cardiac Monitoring] [RC] Q8H 10/03/20 21:45 Heparin Sodium/0.45% NaCl [Heparin 25,000 Units in 1/2 NS 500 ML] 500 ml IV TITRATE 10/03/20 21:47 Morphine 2 mg IVPUSH Q3H PRN 10/03/20 21:48 Ondansetron [Zofran] 4 mg IVPUSH Q4H PRN 10/03/20 23:30 Lactated Ringers [Ringers, Lactated] 1,000 ml IV ASDIRECTED 10/04/20 00:45 Pantoprazole [ProTONIX IV] 40 mg Sodium Chloride 0.9% [Normal Saline] 10 ml IV Q24H 10/04/20 00:59 Oxygen Therapy [RC] PRN Up ad Fatimah [RC] ASDIRECTED VTE/DVT Education [RC] PER UNIT ROUTINE Vital Signs [RC] Q4H Sequential Compression Device [OM.PC] Per Unit Routine Resuscitation Status Routine 10/04/20 01:00 Antiembolic Devices [RC] Q12H 10/04/20 09:00 Warfarin Dosing [Coumadin Ask] 1 each PO DAILY 10/04/20 16:45 PTT,PARTIAL THROMBOPLSTIN TIME [COAG] Q6H 10/04/20 22:45 PTT,PARTIAL THROMBOPLSTIN TIME [COAG] Q6H 10/05/20 00:00 PTT,PARTIAL THROMBOPLSTIN TIME [COAG] Q6H 10/05/20 05:11 BASIC METABOLIC PANEL,BMP [CHEM] AM CBC WITH AUTO DIFF [HEME] AM INR,PT,PROTHROMBIN TIME [COAG] AM 10/05/20 06:00 PTT,PARTIAL THROMBOPLSTIN TIME [COAG] Q6H 10/05/20 09:00 Patient's Own Medication [Ptom] 1 each PO DAILY 10/05/20 12:00 PTT,PARTIAL THROMBOPLSTIN TIME [COAG] Q6H 10/05/20 18:00 PTT,PARTIAL THROMBOPLSTIN TIME [COAG] Q6H 10/06/20 00:00 PTT,PARTIAL THROMBOPLSTIN TIME [COAG] Q6H 10/06/20 05:11 INR,PT,PROTHROMBIN TIME [COAG] AM 10/07/20 05:11 INR,PT,PROTHROMBIN TIME [COAG] AM 10/08/20 05:11 INR,PT,PROTHROMBIN TIME [COAG] AM - Plan Plan:: 75 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 We will continue Coumadin with heparin bridge. We will advance diet as tolerated.
[2020-10-04] MEDS: Heparin Sodium/0.45% NaCl 500 ML IV SCH (15:29)
[2020-10-04] MEDS ORDERED: Heparin Sodium 5,000 Units/ML Vial ONE (17:20)
[2020-10-04] MEDS: Morphine 2 MG/ML SYRINGE IVPUSH PRN ×2 (20:48→23:48)
[2020-10-05 05:10] LABS: CARBON DIOXIDE,CO2 27.6 mmol/L (21.0-32.0)
[2020-10-05] MEDS: Morphine 2 MG/ML SYRINGE IVPUSH PRN ×4 (05:11→23:07)
[2020-10-05] MEDS: Heparin Sodium/0.45% NaCl 500 ML IV SCH ×2 (05:17→18:22)
[2020-10-05] MEDS: Lactated Ringers 1,000 ML IV SCH ×3 (07:49→23:59)
[2020-10-05] MEDS: Psyllium Husk Powder Sugar Free 5.85 GM Packet PO SCH (09:20)
[2020-10-05] MEDS: oxyCODONE 5 MG Tab PO PRN ×2 (09:37→15:56)
--- NOTE | 2020-10-05 09:55 | PCM.CONSN ---
- General Info Date of Service: 10/05/20 Functional Status: Reports: Tolerating Diet, Ambulating, Urinating, Other (Ate a larger meal this morning and now having some increased pain in LUQ. No nausea or vomiting. Had a BM ) - Review of Systems General: Reports: No Symptoms HEENT: Reports: No Symptoms Pulmonary: Reports: No Symptoms Cardiovascular: Reports: No Symptoms Gastrointestinal: Reports: Abdominal Pain, Flatus. Denies: Constipation, Nausea, Vomiting Genitourinary: Reports: No Symptoms Musculoskeletal: Reports: No Symptoms - Patient Data Vitals - Most Recent: Last Vital Signs Temp 37.1 C 10/05/20 07:34 Pulse 71 10/05/20 07:34 Resp 12 10/05/20 07:34 BP 114/56 L 10/05/20 07:34 Pulse Ox 96 10/05/20 07:34 Weight - Most Recent: 79.968 kg I&O - Last 24 Hours: Intake & Output 10/04/20 10/05/20 10/05/20 22:59 06:59 14:59 Intake Total 2551 1639 Output Total 0 Balance 2551 1639 Lab Results Last 24 Hours: Laboratory Results - last 24 hr 10/04/20 10/04/20 10/04/20 Range/Units 10:56 16:50 22:48 WBC (4.0-11.0) K/uL RBC (4.50-5.90) M/uL Hgb (13.0-17.0) g/dL Hct (38.0-50.0) % MCV (80.0-98.0) fL MCH (27.0-32.0) pg MCHC (31.0-37.0) g/dL RDW Std Deviation (28.0-62.0) fl RDW Coeff of Karma (11.0-15.0) % Plt Count (150-400) K/uL MPV (7.40-12.00) fL Neut % (Auto) (48.0-80.0) % Lymph % (Auto) (16.0-40.0) % Amador % (Auto) (0.0-15.0) % Eos % (Auto) (0.0-7.0) % Baso % (Auto) (0.0-1.5) % Neut # (Auto) (1.4-5.7) K/uL Lymph # (Auto) (0.6-2.4) K/uL Amador # (Auto) (0.0-0.8) K/uL Eos # (Auto) (0.0-0.7) K/uL Baso # (Auto) (0.0-0.1) K/uL Nucleated RBC % /100WBC Nucleated RBCs # K/uL INR APTT 42.8 H 48.1 H 64.8 H (18.6-31.3) SEC Sodium (136-148) mmol/L Potassium (3.5-5.1) mmol/L Chloride (98-107) mmol/L Carbon Dioxide (21.0-32.0) mmol/L BUN (7.0-18.0) mg/dL Creatinine (0.8-1.3) mg/dL Est Cr Clr Drug Dosing mL/min Estimated GFR (MDRD) ml/min Glucose (74-106) mg/dL Calcium (8.5-10.1) mg/dL 10/05/20 10/05/20 10/05/20 Range/Units 04:45 04:45 04:45 WBC 16.14 H (4.0-11.0) K/uL RBC 3.70 L (4.50-5.90) M/uL Hgb 11.4 L (13.0-17.0) g/dL Hct 35.5 L (38.0-50.0) % MCV 95.9 (80.0-98.0) fL MCH 30.8 (27.0-32.0) pg MCHC 32.1 (31.0-37.0) g/dL RDW Std Deviation 44.5 (28.0-62.0) fl RDW Coeff of Karma 13 (11.0-15.0) % Plt Count 202 (150-400) K/uL MPV 8.40 (7.40-12.00) fL Neut % (Auto) 86.3 H (48.0-80.0) % Lymph % (Auto) 6.4 L (16.0-40.0) % Amador % (Auto) 7.1 (0.0-15.0) % Eos % (Auto) 0.1 (0.0-7.0) % Baso % (Auto) 0.1 (0.0-1.5) % Neut # (Auto) 13.9 H (1.4-5.7) K/uL Lymph # (Auto) 1.0 (0.6-2.4) K/uL Amador # (Auto) 1.1 H (0.0-0.8) K/uL Eos # (Auto) 0.0 (0.0-0.7) K/uL Baso # (Auto) 0.0 (0.0-0.1) K/uL Nucleated RBC % 0.0 /100WBC Nucleated RBCs # 0 K/uL INR 1.16 APTT (18.6-31.3) SEC Sodium 135 L (136-148) mmol/L Potassium 4.0 (3.5-5.1) mmol/L Chloride 102 (98-107) mmol/L Carbon Dioxide 27.6 (21.0-32.0) mmol/L BUN 13 (7.0-18.0) mg/dL Creatinine 1.2 (0.8-1.3) mg/dL Est Cr Clr Drug Dosing 53.23 mL/min Estimated GFR (MDRD) 58.7 ml/min Glucose 105 (74-106) mg/dL Calcium 7.2 L (8.5-10.1) mg/dL 10/05/20 Range/Units 04:45 WBC (4.0-11.0) K/uL RBC (4.50-5.90) M/uL Hgb (13.0-17.0) g/dL Hct (38.0-50.0) % MCV (80.0-98.0) fL MCH (27.0-32.0) pg MCHC (31.0-37.0) g/dL RDW Std Deviation (28.0-62.0) fl RDW Coeff of Karma (11.0-15.0) % Plt Count (150-400) K/uL MPV (7.40-12.00) fL Neut % (Auto) (48.0-80.0) % Lymph % (Auto) (16.0-40.0) % Amador % (Auto) (0.0-15.0) % Eos % (Auto) (0.0-7.0) % Baso % (Auto) (0.0-1.5) % Neut # (Auto) (1.4-5.7) K/uL Lymph # (Auto) (0.6-2.4) K/uL Amador # (Auto) (0.0-0.8) K/uL Eos # (Auto) (0.0-0.7) K/uL Baso # (Auto) (0.0-0.1) K/uL Nucleated RBC % /100WBC Nucleated RBCs # K/uL INR APTT 63.1 H (18.6-31.3) SEC Sodium (136-148) mmol/L Potassium (3.5-5.1) mmol/L Chloride (98-107) mmol/L Carbon Dioxide (21.0-32.0) mmol/L BUN (7.0-18.0) mg/dL Creatinine (0.8-1.3) mg/dL Est Cr Clr Drug Dosing mL/min Estimated GFR (MDRD) ml/min Glucose (74-106) mg/dL Calcium (8.5-10.1) mg/dL Med Orders - Current: Current Medications Heparin Sodium/Sodium Chloride (Heparin 25,000 Units In 1/2 Ns 500 Ml) 500 mls @ 25.59 mls/hr IV TITRATE [facility]; Protocol Last Admin: 10/05/20 05:17 Dose: 24 units/kg/hr, 38.385 mls/hr Documented by: Lactated Ringer's (Ringers, Lactated) 1,000 mls @ 125 mls/hr IV ASDIRECTED [facility] Last Admin: 10/04/20 23:35 Dose: 125 mls/hr Documented by: Pantoprazole Sodium 40 mg/ (Sodium Chloride) 10 mls @ 300 mls/hr IV Q24H [facility] Last Admin: 10/04/20 23:52 Dose: 300 mls/hr Documented by: Morphine Sulfate (Morphine 2 Mg/Ml Syringe) 2 mg IVPUSH Q3H PRN PRN Reason: Pain Last Admin: 10/05/20 07:49 Dose: 2 mg Documented by: Ondansetron HCl (Ondansetron 4 Mg/2 Ml Sdv) 4 mg IVPUSH Q4H PRN PRN Reason: Nausea/Vomiting Oxycodone HCl (Oxycodone 5 Mg Tab) 5 mg PO Q4H PRN PRN Reason: Pain Last Admin: 10/05/20 09:37 Dose: 5 mg Documented by: Psyllium Husk Powder Sugar Free 5.85 Gm Packet 1 each PO DAILY [facility] Last Admin: 10/05/20 09:20 Dose: 1 each Documented by: Sodium Chloride (Sodium Chloride 0.9% 10 Ml Syringe) 10 ml FLUSH ASDIRECTED PRN PRN Reason: Keep Vein Open Last Admin: 10/03/20 16:20 Dose: 10 ml Documented by: Sodium Chloride (Sodium Chloride 0.9% 2.5 Ml Syringe) 2.5 ml FLUSH ASDIRECTED PRN PRN Reason: Keep Vein Open Last Admin: 10/03/20 16:20 Dose: 2.5 ml Documented by: Warfarin Sodium (Warfarin Ask Dosing) 1 each PO DAILY@1400 [facility] Discontinued Medications Heparin Sodium (Porcine) (Heparin Sodium 5,000 Units/Ml Vial) 5,000 units IVPUSH ONETIME ONE Stop: 10/03/20 22:02 Last Admin: 10/03/20 22:30 Dose: 5,000 units Documented by: Heparin Sodium (Porcine) (Heparin Sodium 5,000 Units/Ml Vial) 2,500 units IVPUSH ONETIME ONE Stop: 10/04/20 05:31 Last Admin: 10/04/20 05:46 Dose: 2,500 units Documented by: Heparin Sodium (Porcine) (Heparin Sodium 5,000 Units/Ml Vial) 1,500 units IVPUSH .BOLUS ONE Stop: 10/04/20 11:58 Last Admin: 10/04/20 12:09 Dose: 1,500 units Documented by: Heparin Sodium (Porcine) (Heparin Sodium 5,000 Units/Ml Vial) 1,500 units IVPUSH .BOLUS ONE Stop: 10/04/20 17:17 Last Admin: 10/04/20 17:24 Dose: 1,500 units Documented by: Heparin Sodium (Porcine) (Heparin Sodium 5,000 Units/Ml Vial) Confirm Administered Dose 5,000 units .ROUTE .STK-MED ONE Stop: 10/04/20 17:21 Last Admin: 10/04/20 17:26 Dose: Not Given Documented by: Lactated Ringer's (Ringers, Lactated) 1,000 mls @ 999 mls/hr IV ASDIRECTED [facility] Last Admin: 10/05/20 07:49 Dose: 999 mls/hr Documented by: Iopamidol (Iopamidol 755 Mg/Ml 500 Ml Multipack Bottle) 100 ml IVPUSH ONETIME ONE Stop: 10/03/20 17:26 Last Admin: 10/03/20 17:25 Dose: 100 ml Documented by: Morphine Sulfate (Morphine 4 Mg/Ml Syringe) 4 mg IVPUSH ONETIME ONE Stop: 10/03/20 19:16 Last Admin: 10/03/20 19:55 Dose: 4 mg Documented by: Ondansetron HCl (Ondansetron 4 Mg/2 Ml Sdv) 4 mg IVPUSH ONETIME ONE Stop: 10/03/20 16:12 Last Admin: 10/03/20 16:19 Dose: 4 mg Documented by: Warfarin Sodium (Warfarin Ask Dosing) 1 each PO DAILY [facility] Last Admin: 10/04/20 09:45 Dose: Not Given Documented by: Warfarin Sodium (Warfarin 5 Mg Tab) 5 mg PO ONETIME ONE Stop: 10/04/20 14:01 Last Admin: 10/04/20 13:26 Dose: 5 mg Documented by: - Exam Quality Assessment: Supplemental Oxygen General: Alert, Oriented HEENT: Pupils Equal, Pupils Reactive Lungs: Normal Respiratory Effort Cardiovascular: Regular Rate GI/Abdominal Exam: Soft, Non-Tender, No Distention, No Mass Extremities: Normal Inspection Sepsis Event Note - Evaluation Sepsis Screening Result: No Definite Risk - Focused Exam Vital Signs: Vital Signs Temp Pulse Resp BP Pulse Ox Pulse Ox 10/05/20 07:34 37.1 C 71 12 114/56 L 96 10/05/20 05:10 73 16 121/62 10/05/20 03:30 37.7 C 75 14 108/62 95 10/04/20 23:33 37.7 C 79 16 104/65 95 10/04/20 22:00 95 Consult PN Assessment/Plan Procedures: Procedures ASSAY OF LIPASE (01/11/19) ASSAY OF TROPONIN QUANT (01/03/18) ASSAY THYROID STIM HORMONE (01/03/18) BLOOD CULTURE FOR BACTERIA (01/03/18) C-REACTIVE PROTEIN (01/13/15) CARDIAC REHAB/MONITOR (09/14/18) COMPLETE CBC AUTOMATED (01/11/19) COMPLETE CBC W/AUTO DIFF WBC (01/03/18) COMPREHEN METABOLIC PANEL (01/11/19) CT ABD & PELV 1/> REGNS (01/11/19) CT ABD & PELV W/CONTRAST (01/13/15) CT ANGIOGRAPHY NECK (09/25/18) CT HEAD/BRAIN W/O DYE (01/03/18) CT MAXILLOFACIAL W/O DYE (08/07/15) EEG AWAKE AND ASLEEP (01/18/18) ELECTROCARDIOGRAM TRACING (01/03/18) EMERGENCY DEPT VISIT (01/03/18) EMERGENCY DEPT VISIT (01/13/15) EXTRACRANIAL BILAT STUDY (09/17/18) GLYCOSYLATED HEMOGLOBIN TEST (01/03/18) HYDRATE IV INFUSION ADD-ON (01/03/18) LIPID PANEL (01/03/18) METABOLIC PANEL TOTAL CA (09/21/18) MRI BRAIN STEM W/O & W/DYE (01/19/18) OFFICE O/P NEW LOW 30-44 MIN (01/15/15) POLYSOM 6/>YRS CPAP 4/> PARM (02/26/20) PROTHROMBIN TIME (01/03/18) ROUTINE VENIPUNCTURE (01/11/19) THER/PROPH/DIAG INJ IV PUSH (01/03/18) THER/PROPH/DIAG INJ SC/IM (01/03/18) THROMBOPLASTIN TIME PARTIAL (01/03/18) TTE W/DOPPLER COMPLETE (01/03/18) TX/PRO/DX INJ NEW DRUG ADDON (01/13/15) TX/PRO/DX INJ SAME DRUG SHRIMP PACKER (01/03/18) URINALYSIS AUTO W/SCOPE (01/03/18) US EXAM OF HEAD AND NECK (10/15/15) X-RAY EXAM CHEST 1 VIEW (01/03/18) (1) Splenic infarct SNOMED Code(s): 43887442 Code(s): 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 Continue pain medications as needed. Can try norco as well for pain control. Would schedule echo given his cardiac history. Continue coumadin and heparin gtt until therapeutic.
--- NOTE | 2020-10-05 10:06 | PCM.PN ---
- General Info Date of Service: 10/05/20 - Review of Systems Systems Review Comment:: reports left sided pain increased after eating large breakfast. - Patient Data Vitals - Most Recent: Last Vital Signs Temp 37.1 C 10/05/20 07:34 Pulse 71 10/05/20 07:34 Resp 12 10/05/20 07:34 BP 114/56 L 10/05/20 07:34 Pulse Ox 96 10/05/20 07:34 Weight - Most Recent: 79.968 kg I&O - Last 24 Hours: Intake & Output 10/04/20 10/05/20 10/05/20 22:59 06:59 14:59 Intake Total 2551 1639 Output Total 0 Balance 2551 1639 Lab Results Last 24 Hours: Laboratory Results - last 24 hr 10/04/20 10/04/20 10/04/20 Range/Units 10:56 16:50 22:48 WBC (4.0-11.0) K/uL RBC (4.50-5.90) M/uL Hgb (13.0-17.0) g/dL Hct (38.0-50.0) % MCV (80.0-98.0) fL MCH (27.0-32.0) pg MCHC (31.0-37.0) g/dL RDW Std Deviation (28.0-62.0) fl RDW Coeff of Karma (11.0-15.0) % Plt Count (150-400) K/uL MPV (7.40-12.00) fL Neut % (Auto) (48.0-80.0) % Lymph % (Auto) (16.0-40.0) % Hickman % (Auto) (0.0-15.0) % Eos % (Auto) (0.0-7.0) % Baso % (Auto) (0.0-1.5) % Neut # (Auto) (1.4-5.7) K/uL Lymph # (Auto) (0.6-2.4) K/uL Hickman # (Auto) (0.0-0.8) K/uL Eos # (Auto) (0.0-0.7) K/uL Baso # (Auto) (0.0-0.1) K/uL Nucleated RBC % /100WBC Nucleated RBCs # K/uL INR APTT 42.8 H 48.1 H 64.8 H (18.6-31.3) SEC Sodium (136-148) mmol/L Potassium (3.5-5.1) mmol/L Chloride (98-107) mmol/L Carbon Dioxide (21.0-32.0) mmol/L BUN (7.0-18.0) mg/dL Creatinine (0.8-1.3) mg/dL Est Cr Clr Drug Dosing mL/min Estimated GFR (MDRD) ml/min Glucose (74-106) mg/dL Calcium (8.5-10.1) mg/dL 10/05/20 10/05/20 10/05/20 Range/Units 04:45 04:45 04:45 WBC 16.14 H (4.0-11.0) K/uL RBC 3.70 L (4.50-5.90) M/uL Hgb 11.4 L (13.0-17.0) g/dL Hct 35.5 L (38.0-50.0) % MCV 95.9 (80.0-98.0) fL MCH 30.8 (27.0-32.0) pg MCHC 32.1 (31.0-37.0) g/dL RDW Std Deviation 44.5 (28.0-62.0) fl RDW Coeff of Karma 13 (11.0-15.0) % Plt Count 202 (150-400) K/uL MPV 8.40 (7.40-12.00) fL Neut % (Auto) 86.3 H (48.0-80.0) % Lymph % (Auto) 6.4 L (16.0-40.0) % Hickman % (Auto) 7.1 (0.0-15.0) % Eos % (Auto) 0.1 (0.0-7.0) % Baso % (Auto) 0.1 (0.0-1.5) % Neut # (Auto) 13.9 H (1.4-5.7) K/uL Lymph # (Auto) 1.0 (0.6-2.4) K/uL Hickman # (Auto) 1.1 H (0.0-0.8) K/uL Eos # (Auto) 0.0 (0.0-0.7) K/uL Baso # (Auto) 0.0 (0.0-0.1) K/uL Nucleated RBC % 0.0 /100WBC Nucleated RBCs # 0 K/uL INR 1.16 APTT (18.6-31.3) SEC Sodium 135 L (136-148) mmol/L Potassium 4.0 (3.5-5.1) mmol/L Chloride 102 (98-107) mmol/L Carbon Dioxide 27.6 (21.0-32.0) mmol/L BUN 13 (7.0-18.0) mg/dL Creatinine 1.2 (0.8-1.3) mg/dL Est Cr Clr Drug Dosing 53.23 mL/min Estimated GFR (MDRD) 58.7 ml/min Glucose 105 (74-106) mg/dL Calcium 7.2 L (8.5-10.1) mg/dL 10/05/20 Range/Units 04:45 WBC (4.0-11.0) K/uL RBC (4.50-5.90) M/uL Hgb (13.0-17.0) g/dL Hct (38.0-50.0) % MCV (80.0-98.0) fL MCH (27.0-32.0) pg MCHC (31.0-37.0) g/dL RDW Std Deviation (28.0-62.0) fl RDW Coeff of Karma (11.0-15.0) % Plt Count (150-400) K/uL MPV (7.40-12.00) fL Neut % (Auto) (48.0-80.0) % Lymph % (Auto) (16.0-40.0) % Hickman % (Auto) (0.0-15.0) % Eos % (Auto) (0.0-7.0) % Baso % (Auto) (0.0-1.5) % Neut # (Auto) (1.4-5.7) K/uL Lymph # (Auto) (0.6-2.4) K/uL Hickman # (Auto) (0.0-0.8) K/uL Eos # (Auto) (0.0-0.7) K/uL Baso # (Auto) (0.0-0.1) K/uL Nucleated RBC % /100WBC Nucleated RBCs # K/uL INR APTT 63.1 H (18.6-31.3) SEC Sodium (136-148) mmol/L Potassium (3.5-5.1) mmol/L Chloride (98-107) mmol/L Carbon Dioxide (21.0-32.0) mmol/L BUN (7.0-18.0) mg/dL Creatinine (0.8-1.3) mg/dL Est Cr Clr Drug Dosing mL/min Estimated GFR (MDRD) ml/min Glucose (74-106) mg/dL Calcium (8.5-10.1) mg/dL Med Orders - Current: Current Medications Heparin Sodium/Sodium Chloride (Heparin 25,000 Units In 1/2 Ns 500 Ml) 500 mls @ 25.59 mls/hr IV TITRATE [facility]; Protocol Last Admin: 10/05/20 05:17 Dose: 24 units/kg/hr, 38.385 mls/hr Documented by: Lactated Ringer's (Ringers, Lactated) 1,000 mls @ 125 mls/hr IV ASDIRECTED [facility] Last Admin: 10/04/20 23:35 Dose: 125 mls/hr Documented by: Pantoprazole Sodium 40 mg/ (Sodium Chloride) 10 mls @ 300 mls/hr IV Q24H [facility] Last Admin: 10/04/20 23:52 Dose: 300 mls/hr Documented by: Morphine Sulfate (Morphine 2 Mg/Ml Syringe) 2 mg IVPUSH Q3H PRN PRN Reason: Pain Last Admin: 10/05/20 07:49 Dose: 2 mg Documented by: Ondansetron HCl (Ondansetron 4 Mg/2 Ml Sdv) 4 mg IVPUSH Q4H PRN PRN Reason: Nausea/Vomiting Oxycodone HCl (Oxycodone 5 Mg Tab) 5 mg PO Q4H PRN PRN Reason: Pain Last Admin: 10/05/20 09:37 Dose: 5 mg Documented by: Psyllium Husk Powder Sugar Free 5.85 Gm Packet 1 each PO DAILY [facility] Last Admin: 10/05/20 09:20 Dose: 1 each Documented by: Sodium Chloride (Sodium Chloride 0.9% 10 Ml Syringe) 10 ml FLUSH ASDIRECTED PRN PRN Reason: Keep Vein Open Last Admin: 10/03/20 16:20 Dose: 10 ml Documented by: Sodium Chloride (Sodium Chloride 0.9% 2.5 Ml Syringe) 2.5 ml FLUSH ASDIRECTED PRN PRN Reason: Keep Vein Open Last Admin: 10/03/20 16:20 Dose: 2.5 ml Documented by: Warfarin Sodium (Warfarin Ask Dosing) 1 each PO DAILY@1400 [facility] Discontinued Medications Heparin Sodium (Porcine) (Heparin Sodium 5,000 Units/Ml Vial) 5,000 units IVPUSH ONETIME ONE Stop: 10/03/20 22:02 Last Admin: 10/03/20 22:30 Dose: 5,000 units Documented by: Heparin Sodium (Porcine) (Heparin Sodium 5,000 Units/Ml Vial) 2,500 units IVPUSH ONETIME ONE Stop: 10/04/20 05:31 Last Admin: 10/04/20 05:46 Dose: 2,500 units Documented by: Heparin Sodium (Porcine) (Heparin Sodium 5,000 Units/Ml Vial) 1,500 units IVPUSH .BOLUS ONE Stop: 10/04/20 11:58 Last Admin: 10/04/20 12:09 Dose: 1,500 units Documented by: Heparin Sodium (Porcine) (Heparin Sodium 5,000 Units/Ml Vial) 1,500 units IVPUSH .BOLUS ONE Stop: 10/04/20 17:17 Last Admin: 10/04/20 17:24 Dose: 1,500 units Documented by: Heparin Sodium (Porcine) (Heparin Sodium 5,000 Units/Ml Vial) Confirm Admi nistered Dose 5,000 units .ROUTE .STK-MED ONE Stop: 10/04/20 17:21 Last Admin: 10/04/20 17:26 Dose: Not Given Documented by: Lactated Ringer's (Ringers, Lactated) 1,000 mls @ 999 mls/hr IV ASDIRECTED [facility] Last Admin: 10/05/20 07:49 Dose: 999 mls/hr Documented by: Iopamidol (Iopamidol 755 Mg/Ml 500 Ml Multipack Bottle) 100 ml IVPUSH ONETIME ONE Stop: 10/03/20 17:26 Last Admin: 10/03/20 17:25 Dose: 100 ml Documented by: Morphine Sulfate (Morphine 4 Mg/Ml Syringe) 4 mg IVPUSH ONETIME ONE Stop: 10/03/20 19:16 Last Admin: 10/03/20 19:55 Dose: 4 mg Documented by: Ondansetron HCl (Ondansetron 4 Mg/2 Ml Sdv) 4 mg IVPUSH ONETIME ONE Stop: 10/03/20 16:12 Last Admin: 10/03/20 16:19 Dose: 4 mg Documented by: Warfarin Sodium (Warfarin Ask Dosing) 1 each PO DAILY [facility] Last Admin: 10/04/20 09:45 Dose: Not Given Documented by: Warfarin Sodium (Warfarin 5 Mg Tab) 5 mg PO ONETIME ONE Stop: 10/04/20 14:01 Last Admin: 10/04/20 13:26 Dose: 5 mg Documented by: - Exam General: Alert, Oriented Neck: Supple Lungs: Clear to Auscultation, Normal Respiratory Effort Cardiovascular: Regular Rate, Regular Rhythm GI/Abdominal Exam: Normal Bowel Sounds, Soft, Non-Tender, No Distention Extremities: Non-Tender, No Pedal Edema Skin: Warm, Dry, Intact Neurological: No New Focal Deficit - Patient Data Lab Results Last 24 hrs: Laboratory Results - last 24 hr 10/04/20 10/04/20 10/04/20 Range/Units 10:56 16:50 22:48 WBC (4.0-11.0) K/uL RBC (4.50-5.90) M/uL Hgb (13.0-17.0) g/dL Hct (38.0-50.0) % MCV (80.0-98.0) fL MCH (27.0-32.0) pg MCHC (31.0-37.0) g/dL RDW Std Deviation (28.0-62.0) fl RDW Coeff of Karma (11.0-15.0) % Plt Count (150-400) K/uL MPV (7.40-12.00) fL Neut % (Auto) (48.0-80.0) % Lymph % (Auto) (16.0-40.0) % Hickman % (Auto) (0.0-15.0) % Eos % (Auto) (0.0-7.0) % Baso % (Auto) (0.0-1.5) % Neut # (Auto) (1.4-5.7) K/uL Lymph # (Auto) (0.6-2.4) K/uL Hickman # (Auto) (0.0-0.8) K/uL Eos # (Auto) (0.0-0.7) K/uL Baso # (Auto) (0.0-0.1) K/uL Nucleated RBC % /100WBC Nucleated RBCs # K/uL INR APTT 42.8 H 48.1 H 64.8 H (18.6-31.3) SEC Sodium (136-148) mmol/L Potassium (3.5-5.1) mmol/L Chloride (98-107) mmol/L Carbon Dioxide (21.0-32.0) mmol/L BUN (7.0-18.0) mg/dL Creatinine (0.8-1.3) mg/dL Est Cr Clr Drug Dosing mL/min Estimated GFR (MDRD) ml/min Glucose (74-106) mg/dL Calcium (8.5-10.1) mg/dL 10/05/20 10/05/20 10/05/20 Range/Units 04:45 04:45 04:45 WBC 16.14 H (4.0-11.0) K/uL RBC 3.70 L (4.50-5.90) M/uL Hgb 11.4 L (13.0-17.0) g/dL Hct 35.5 L (38.0-50.0) % MCV 95.9 (80.0-98.0) fL MCH 30.8 (27.0-32.0) pg MCHC 32.1 (31.0-37.0) g/dL RDW Std Deviation 44.5 (28.0-62.0) fl RDW Coeff of Karma 13 (11.0-15.0) % Plt Count 202 (150-400) K/uL MPV 8.40 (7.40-12.00) fL Neut % (Auto) 86.3 H (48.0-80.0) % Lymph % (Auto) 6.4 L (16.0-40.0) % Hickman % (Auto) 7.1 (0.0-15.0) % Eos % (Auto) 0.1 (0.0-7.0) % Baso % (Auto) 0.1 (0.0-1.5) % Neut # (Auto) 13.9 H (1.4-5.7) K/uL Lymph # (Auto) 1.0 (0.6-2.4) K/uL Hickman # (Auto) 1.1 H (0.0-0.8) K/uL Eos # (Auto) 0.0 (0.0-0.7) K/uL Baso # (Auto) 0.0 (0.0-0.1) K/uL Nucleated RBC % 0.0 /100WBC Nucleated RBCs # 0 K/uL INR 1.16 APTT (18.6-31.3) SEC Sodium 135 L (136-148) mmol/L Potassium 4.0 (3.5-5.1) mmol/L Chloride 102 (98-107) mmol/L Carbon Dioxide 27.6 (21.0-32.0) mmol/L BUN 13 (7.0-18.0) mg/dL Creatinine 1.2 (0.8-1.3) mg/dL Est Cr Clr Drug Dosing 53.23 mL/min Estimated GFR (MDRD) 58.7 ml/min Glucose 105 (74-106) mg/dL Calcium 7.2 L (8.5-10.1) mg/dL 10/05/20 Range/Units 04:45 WBC (4.0-11.0) K/uL RBC (4.50-5.90) M/uL Hgb (13.0-17.0) g/dL Hct (38.0-50.0) % MCV (80.0-98.0) fL MCH (27.0-32.0) pg MCHC (31.0-37.0) g/dL RDW Std Deviation (28.0-62.0) fl RDW Coeff of Karma (11.0-15.0) % Plt Count (150-400) K/uL MPV (7.40-12.00) fL Neut % (Auto) (48.0-80.0) % Lymph % (Auto) (16.0-40.0) % Hickman % (Auto) (0.0-15.0) % Eos % (Auto) (0.0-7.0) % Baso % (Auto) (0.0-1.5) % Neut # (Auto) (1.4-5.7) K/uL Lymph # (Auto) (0.6-2.4) K/uL Hickman # (Auto) (0.0-0.8) K/uL Eos # (Auto) (0.0-0.7) K/uL Baso # (Auto) (0.0-0.1) K/uL Nucleated RBC % /100WBC Nucleated RBCs # K/uL INR APTT 63.1 H (18.6-31.3) SEC Sodium (136-148) mmol/L Potassium (3.5-5.1) mmol/L Chloride (98-107) mmol/L Carbon Dioxide (21.0-32.0) mmol/L BUN (7.0-18.0) mg/dL Creatinine (0.8-1.3) mg/dL Est Cr Clr Drug Dosing mL/min Estimated GFR (MDRD) ml/min Glucose (74-106) mg/dL Calcium (8.5-10.1) mg/dL Result Diagrams: 10/05/20 04:45 10/05/20 04:45 Sepsis Event Note - Evaluation Sepsis Screening Result: No Definite Risk - Focused Exam Vital Signs: Vital Signs Temp Pulse Resp BP Pulse Ox 10/05/20 07:34 37.1 C 71 12 114/56 L 96 10/05/20 05:10 73 16 121/62 10/05/20 03:30 37.7 C 75 14 108/62 95 10/04/20 23:33 37.7 C 79 16 104/65 95 - Problem List Review Problem List Initiated/Reviewed/Updated: Yes - My Orders Last 24 Hours: My Active Orders 10/05/20 09:00 Patient's Own Medication [Ptom] 1 each PO DAILY 10/05/20 12:45 PTT,PARTIAL THROMBOPLSTIN TIME [COAG] Q8H 10/05/20 14:00 Warfarin Dosing [Coumadin Ask] 1 each PO DAILY@1400 10/05/20 20:45 PTT,PARTIAL THROMBOPLSTIN TIME [COAG] Q8H 10/06/20 04:45 PTT,PARTIAL THROMBOPLSTIN TIME [COAG] Q8H 10/06/20 05:11 INR,PT,PROTHROMBIN TIME [COAG] AM 10/06/20 12:45 PTT,PARTIAL THROMBOPLSTIN TIME [COAG] Q8H 10/07/20 05:11 INR,PT,PROTHROMBIN TIME [COAG] AM 10/08/20 05:11 INR,PT,PROTHROMBIN TIME [COAG] AM - Plan Plan:: 75 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 We will continue IV fluids to ensure proprer hydration. Patient is on morphine and oxycodone for pain control. Patient has been started on coumadin with heparin bridge.
[2020-10-05] MEDS ORDERED: Warfarin 10 MG Tab PO SCH (14:00)
[2020-10-06] MEDS: Pantoprazole 40 MG in Sodium Chloride 0.9% 10 ML IV SCH ×2 (00:01→23:57)
[2020-10-06] MEDS: oxyCODONE 5 MG Tab PO PRN ×3 (01:56→18:04)
[2020-10-06] MEDS: Lactated Ringers 1,000 ML IV SCH ×2 (08:24→16:29)
[2020-10-06] MEDS: Heparin Sodium/0.45% NaCl 500 ML IV SCH ×2 (08:26→21:30)
[2020-10-06] MEDS: Psyllium Husk Powder Sugar Free 5.85 GM Packet PO SCH (08:41)
[2020-10-06 09:07] LABS: BLOOD UREA NITROGEN,BUN 11 mg/dL (7.0-18.0); CHLORIDE,CL 100 mmol/L (98-107); GLUCOSE RANDOM 104 mg/dL (74-106); POTASSIUM,K 3.6 mmol/L (3.5-5.1); SODIUM,NA 134 mmol/L (136-148)
--- NOTE | 2020-10-06 13:24 | PCM.SN.2 ---
- Free Text/Narrative Note: Patient had no acute events overnight. Tolerating a regular diet. UOP adequate. VSS. WBC decreased to 13K. INR 1.3. Echo done yesterday to be read today. Patient ok to discharge once therapeutic on coumadin. Follow up in hematology clinic after discharge [facility]. No need to follow up in my clinic unless having increased abdominal pain nausea or vomiting. WIll sign off today. Please call if there are concerns or questions.
--- NOTE | 2020-10-06 13:33 | PCM.PN ---
- General Info Date of Service: 10/06/20 - Review of Systems Systems Review Comment:: reports right sided abdominal pain that worsens with walking. - Patient Data Vitals - Most Recent: Last Vital Signs Temp 36.9 C 10/06/20 11:53 Pulse 70 10/06/20 11:53 Resp 14 10/06/20 11:53 BP 113/57 L 10/06/20 11:53 Pulse Ox 96 10/06/20 11:53 Weight - Most Recent: 79.968 kg I&O - Last 24 Hours: Intake & Output 10/05/20 10/06/20 10/06/20 22:59 06:59 14:59 Intake Total 700 750 Output Total 0 Balance 700 750 Lab Results Last 24 Hours: Laboratory Results - last 24 hr 10/05/20 10/06/20 10/06/20 Range/Units 20:50 04:45 04:45 WBC (4.0-11.0) K/uL RBC (4.50-5.90) M/uL Hgb (13.0-17.0) g/dL Hct (38.0-50.0) % MCV (80.0-98.0) fL MCH (27.0-32.0) pg MCHC (31.0-37.0) g/dL RDW Std Deviation (28.0-62.0) fl RDW Coeff of Karma (11.0-15.0) % Plt Count (150-400) K/uL MPV (7.40-12.00) fL Neut % (Auto) (48.0-80.0) % Lymph % (Auto) (16.0-40.0) % [place] % (Auto) (0.0-15.0) % Eos % (Auto) (0.0-7.0) % Baso % (Auto) (0.0-1.5) % Neut # (Auto) (1.4-5.7) K/uL Lymph # (Auto) (0.6-2.4) K/uL [place] # (Auto) (0.0-0.8) K/uL Eos # (Auto) (0.0-0.7) K/uL Baso # (Auto) (0.0-0.1) K/uL Nucleated RBC % /100WBC Nucleated RBCs # K/uL INR 1.38 APTT 51.9 H 57.2 H (18.6-31.3) SEC Sodium (136-148) mmol/L Potassium (3.5-5.1) mmol/L Chloride (98-107) mmol/L Carbon Dioxide (21.0-32.0) mmol/L BUN (7.0-18.0) mg/dL Creatinine (0.8-1.3) mg/dL Est Cr Clr Drug Dosing mL/min Estimated GFR (MDRD) ml/min Glucose (74-106) mg/dL Calcium (8.5-10.1) mg/dL 10/06/20 10/06/20 Range/Units 08:34 08:34 WBC 13.34 H (4.0-11.0) K/uL RBC 3.61 L (4.50-5.90) M/uL Hgb 11.1 L (13.0-17.0) g/dL Hct 34.6 L (38.0-50.0) % MCV 95.8 (80.0-98.0) fL MCH 30.7 (27.0-32.0) pg MCHC 32.1 (31.0-37.0) g/dL RDW Std Deviation 44.6 (28.0-62.0) fl RDW Coeff of Karma 13 (11.0-15.0) % Plt Count 216 (150-400) K/uL MPV 8.60 (7.40-12.00) fL Neut % (Auto) 83.0 H (48.0-80.0) % Lymph % (Auto) 7.4 L (16.0-40.0) % [place] % (Auto) 9.1 (0.0-15.0) % Eos % (Auto) 0.4 (0.0-7.0) % Baso % (Auto) 0.1 (0.0-1.5) % Neut # (Auto) 11.1 H (1.4-5.7) K/uL Lymph # (Auto) 1.0 (0.6-2.4) K/uL [place] # (Auto) 1.2 H (0.0-0.8) K/uL Eos # (Auto) 0.1 (0.0-0.7) K/uL Baso # (Auto) 0.0 (0.0-0.1) K/uL Nucleated RBC % 0.0 /100WBC Nucleated RBCs # 0 K/uL INR APTT (18.6-31.3) SEC Sodium 134 L (136-148) mmol/L Potassium 3.6 (3.5-5.1) mmol/L Chloride 100 (98-107) mmol/L Carbon Dioxide 28.0 (21.0-32.0) mmol/L BUN 11 (7.0-18.0) mg/dL Creatinine 1.0 (0.8-1.3) mg/dL Est Cr Clr Drug Dosing 63.88 mL/min Estimated GFR (MDRD) > 60.0 ml/min Glucose 104 (74-106) mg/dL Calcium 7.5 L (8.5-10.1) mg/dL Med Orders - Current: Current Medications Heparin Sodium/Sodium Chloride (Heparin 25,000 Units In 1/2 Ns 500 Ml) 500 mls @ 25.59 mls/hr IV [facility]; Protocol Last Admin: 10/06/20 08:26 Dose: 24 units/kg/hr, 38.385 mls/hr Documented by: Lactated Ringer's (Ringers, Lactated) 1,000 mls @ 125 mls/hr IV ASDIRECTED [facility] Last Admin: 10/06/20 08:24 Dose: 125 mls/hr Documented by: Pantoprazole Sodium 40 mg/ (Sodium Chloride) 10 mls @ 300 mls/hr IV Q24H [facility] Last Admin: 10/06/20 00:01 Dose: 300 mls/hr Documented by: Morphine Sulfate (Morphine 2 Mg/Ml Syringe) 2 mg IVPUSH Q3H PRN PRN Reason: Pain Last Admin: 10/05/20 23:07 Dose: 2 mg Documented by: Ondansetron HCl (Ondansetron 4 Mg/2 Ml Sdv) 4 mg IVPUSH Q4H PRN PRN Reason: Nausea/Vomiting Oxycodone HCl (Oxycodone 5 Mg Tab) 5 mg PO Q4H PRN PRN Reason: Pain Last Admin: 10/06/20 01:56 Dose: 5 mg Documented by: Psyllium Husk Powder Sugar Free 5.85 Gm Packet 1 each PO DAILY [facility] Last Admin: 10/06/20 08:41 Dose: 1 each Documented by: Sodium Chloride (Sodium Chloride 0.9% 10 Ml Syringe) 10 ml FLUSH ASDIRECTED PRN PRN Reason: Keep Vein Open Last Admin: 10/03/20 16:20 Dose: 10 ml Documented by: Sodium Chloride (Sodium Chloride 0.9% 2.5 Ml Syringe) 2.5 ml FLUSH ASDIRECTED PRN PRN Reason: Keep Vein Open Last Admin: 10/03/20 16:20 Dose: 2.5 ml Documented by: Warfarin Sodium (Warfarin Ask Dosing) 1 each PO DAILY@1400 [facility] Last Admin: 10/05/20 13:12 Dose: Not Given Documented by: Warfarin Sodium (Warfarin 5 Mg Tab) 5 mg PO 10/06/20@1400 [facility] Stop: 10/06/20 16:00 Discontinued Medications Heparin Sodium (Porcine) (Heparin Sodium 5,000 Units/Ml Vial) 5,000 units IVPUSH ONETIME ONE Stop: 10/03/20 22:02 Last Admin: 10/03/20 22:30 Dose: 5,000 units Documented by: Heparin Sodium (Porcine) (Heparin Sodium 5,000 Units/Ml Vial) 2,500 units IVPUSH ONETIME ONE Stop: 10/04/20 05:31 Last Admin: 10/04/20 05:46 Dose: 2,500 units Documented by: Heparin Sodium (Porcine) (Heparin Sodium 5,000 Units/Ml Vial) 1,500 units IVPUSH .BOLUS ONE Stop: 10/04/20 11:58 Last Admin: 10/04/20 12:09 Dose: 1,500 units Documented by: Heparin Sodium (Porcine) (Heparin Sodium 5,000 Units/Ml Vial) 1,500 units IVPUSH .BOLUS ONE Stop: 10/04/20 17:17 Last Admin: 10/04/20 17:24 Dose: 1,500 units Documented by: Heparin Sodium (Porcine) (Heparin Sodium 5,000 Units/Ml Vial) Confirm Administered Dose 5,000 units .ROUTE .STK-MED ONE Stop: 10/04/20 17:21 Last Admin: 10/04/20 17:26 Dose: Not Given Documented by: Lactated Ringer's (Ringers, Lactated) 1,000 mls @ 999 mls/hr IV ASDIRECTED [facility] Last Admin: 10/05/20 07:49 Dose: 999 mls/hr Documented by: Iopamidol (Iopamidol 755 Mg/Ml 500 Ml Multipack Bottle) 100 ml IVPUSH ONETIME ONE Stop: 10/03/20 17:26 Last Admin: 10/03/20 17:25 Dose: 100 ml Documented by: Morphine Sulfate (Morphine 4 Mg/Ml Syringe) 4 mg IVPUSH ONETIME ONE Stop: 10/03/20 19:16 Last Admin: 10/03/20 19:55 Dose: 4 mg Documented by: Ondansetron HCl (Ondansetron 4 Mg/2 Ml Sdv) 4 mg IVPUSH ONETIME ONE Stop: 10/03/20 16:12 Last Admin: 10/03/20 16:19 Dose: 4 mg Documented by: Warfarin Sodium (Warfarin Ask Dosing) 1 each PO DAILY [facility] Last Admin: 10/04/20 09:45 Dose: Not Given Documented by: Warfarin Sodium (Warfarin 5 Mg Tab) 5 mg PO ONETIME ONE Stop: 10/04/20 14:01 Last Admin: 10/04/20 13:26 Dose: 5 mg Documented by: Warfarin Sodium (Warfarin 10 Mg Tab) 10 mg PO DAILY@1400 [facility] Stop: 10/05/20 15:00 Last Admin: 10/05/20 13:22 Dose: 10 mg Documented by: - Exam General: Alert, Oriented Neck: Supple Lungs: Clear to Auscultation, Normal Respiratory Effort Cardiovascular: Regular Rate, Regular Rhythm GI/Abdominal Exam: Normal Bowel Sounds, Soft, Non-Tender, No Distention Extremities: Non-Tender, No Pedal Edema Skin: Warm, Dry, Intact Neurological: No New Focal Deficit - Patient Data Lab Results Last 24 hrs: Laboratory Results - last 24 hr 10/05/20 10/06/20 10/06/20 Range/Units 20:50 04:45 04:45 WBC (4.0-11.0) K/uL RBC (4.50-5.90) M/uL Hgb (13.0-17.0) g/dL Hct (38.0-50.0) % MCV (80.0-98.0) fL MCH (27.0-32.0) pg MCHC (31.0-37.0) g/dL RDW Std Deviation (28.0-62.0) fl RDW Coeff of Karma (11.0-15.0) % Plt Count (150-400) K/uL MPV (7.40-12.00) fL Neut % (Auto) (48.0-80.0) % Lymph % (Auto) (16.0-40.0) % [place] % (Auto) (0.0-15.0) % Eos % (Auto) (0.0-7.0) % Baso % (Auto) (0.0-1.5) % Neut # (Auto) (1.4-5.7) K/uL Lymph # (Auto) (0.6-2.4) K/uL [place] # (Auto) (0.0-0.8) K/uL Eos # (Auto) (0.0-0.7) K/uL Baso # (Auto) (0.0-0.1) K/uL Nucleated RBC % /100WBC Nucleated RBCs # K/uL INR 1.38 APTT 51.9 H 57.2 H (18.6-31.3) SEC Sodium (136-148) mmol/L Potassium (3.5-5.1) mmol/L Chloride (98-107) mmol/L Carbon Dioxide (21.0-32.0) mmol/L BUN (7.0-18.0) mg/dL Creatinine (0.8-1.3) mg/dL Est Cr Clr Drug Dosing mL/min Estimated GFR (MDRD) ml/min Glucose (74-106) mg/dL Calcium (8.5-10.1) mg/dL 10/06/20 10/06/20 Range/Units 08:34 08:34 WBC 13.34 H (4.0-11.0) K/uL RBC 3.61 L (4.50-5.90) M/uL Hgb 11.1 L (13.0-17.0) g/dL Hct 34.6 L (38.0-50.0) % MCV 95.8 (80.0-98.0) fL MCH 30.7 (27.0-32.0) pg MCHC 32.1 (31.0-37.0) g/dL RDW Std Deviation 44.6 (28.0-62.0) fl RDW Coeff of Karma 13 (11.0-15.0) % Plt Count 216 (150-400) K/uL MPV 8.60 (7.40-12.00) fL Neut % (Auto) 83.0 H (48.0-80.0) % Lymph % (Auto) 7.4 L (16.0-40.0) % [place] % (Auto) 9.1 (0.0-15.0) % Eos % (Auto) 0.4 (0.0-7.0) % Baso % (Auto) 0.1 (0.0-1.5) % Neut # (Auto) 11.1 H (1.4-5.7) K/uL Lymph # (Auto) 1.0 (0.6-2.4) K/uL [place] # (Auto) 1.2 H (0.0-0.8) K/uL Eos # (Auto) 0.1 (0.0-0.7) K/uL Baso # (Auto) 0.0 (0.0-0.1) K/uL Nucleated RBC % 0.0 /100WBC Nucleated RBCs # 0 K/uL INR APTT (18.6-31.3) SEC Sodium 134 L (136-148) mmol/L Potassium 3.6 (3.5-5.1) mmol/L Chloride 100 (98-107) mmol/L Carbon Dioxide 28.0 (21.0-32.0) mmol/L BUN 11 (7.0-18.0) mg/dL Creatinine 1.0 (0.8-1.3) mg/dL Est Cr Clr Drug Dosing 63.88 mL/min Estimated GFR (MDRD) > 60.0 ml/min Glucose 104 (74-106) mg/dL Calcium 7.5 L (8.5-10.1) mg/dL Result Diagrams: 10/06/20 08:34 10/06/20 08:34 Sepsis Event Note - Evaluation Sepsis Screening Result: No Definite Risk - Focused Exam Vital Signs: Vital Signs Temp Pulse Resp BP Pulse Ox 10/06/20 11:53 36.9 C 70 14 113/57 L 96 10/06/20 07:01 36.8 C 73 14 118/57 L 95 10/06/20 05:00 37.1 C 73 18 117/68 96 - Problem List Review Problem List Initiated/Reviewed/Updated: Yes - My Orders Last 24 Hours: My Active Orders 10/05/20 14:00 Warfarin Dosing [Coumadin Ask] 1 each PO DAILY@1400 10/06/20 12:45 PTT,PARTIAL THROMBOPLSTIN TIME [COAG] Q8H 10/06/20 14:00 Warfarin [Coumadin] 5 mg PO 10/06/20@1400 10/07/20 05:11 BASIC METABOLIC PANEL,BMP [CHEM] AM CBC WITH AUTO DIFF [HEME] AM INR,PT,PROTHROMBIN TIME [COAG] AM 10/08/20 05:11 INR,PT,PROTHROMBIN TIME [COAG] AM - Plan Plan:: 75 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 Patient is on morphine and oxycodone for pain control. We will continue Coumadin with heparin bridge. Anticipate discharge in 2-3 days.
[2020-10-06] MEDS ORDERED: Warfarin 5 MG Tab PO SCH (14:00)
[2020-10-06] MEDS: Morphine 2 MG/ML SYRINGE IVPUSH PRN (16:31)
[2020-10-07] MEDS: Morphine 2 MG/ML SYRINGE IVPUSH PRN (00:02)
[2020-10-07] MEDS: Lactated Ringers 1,000 ML IV SCH ×2 (00:22→08:31)
[2020-10-07] MEDS: oxyCODONE 5 MG Tab PO PRN ×3 (04:13→15:55)
[2020-10-07 06:13] LABS: BLOOD UREA NITROGEN,BUN 11 mg/dL (7.0-18.0); CARBON DIOXIDE,CO2 28.8 mmol/L (21.0-32.0); CHLORIDE,CL 101 mmol/L (98-107); GLUCOSE RANDOM 113 mg/dL (74-106); POTASSIUM,K 3.8 mmol/L (3.5-5.1); SODIUM,NA 137 mmol/L (136-148)
[2020-10-07] MEDS: Psyllium Husk Powder Sugar Free 5.85 GM Packet PO SCH (09:50)
[2020-10-07] MEDS: Heparin Sodium/0.45% NaCl 500 ML IV SCH ×2 (10:14→23:55)
--- NOTE | 2020-10-07 10:55 | PCM.PN ---
- General Info Date of Service: 10/07/20 - Review of Systems Systems Review Comment:: abdominal pain improving, still hurts when he bends over or takes deep breaths - Patient Data Vitals - Most Recent: Last Vital Signs Temp 36.2 C 10/07/20 08:10 Pulse 61 10/07/20 08:10 Resp 18 10/07/20 08:10 BP 146/57 H 10/07/20 08:10 Pulse Ox 92 L 10/07/20 08:10 Weight - Most Recent: 79.968 kg I&O - Last 24 Hours: Intake & Output 10/06/20 10/07/20 10/07/20 22:59 06:59 14:59 Intake Total 3200 2544 Output Total 0 Balance 3200 2544 Lab Results Last 24 Hours: Laboratory Results - last 24 hr 10/06/20 10/07/20 10/07/20 Range/Units 13:30 05:28 05:28 WBC 10.11 (4.0-11.0) K/uL RBC 3.47 L (4.50-5.90) M/uL Hgb 10.5 L (13.0-17.0) g/dL Hct 33.1 L (38.0-50.0) % MCV 95.4 (80.0-98.0) fL MCH 30.3 (27.0-32.0) pg MCHC 31.7 (31.0-37.0) g/dL RDW Std Deviation 44.5 (28.0-62.0) fl RDW Coeff of Karma 13 (11.0-15.0) % Plt Count 253 (150-400) K/uL MPV 8.70 (7.40-12.00) fL Neut % (Auto) 77.6 (48.0-80.0) % Lymph % (Auto) 10.1 L (16.0-40.0) % [place] % (Auto) 11.2 (0.0-15.0) % Eos % (Auto) 0.9 (0.0-7.0) % Baso % (Auto) 0.2 (0.0-1.5) % Neut # (Auto) 7.9 H (1.4-5.7) K/uL Lymph # (Auto) 1.0 (0.6-2.4) K/uL [place] # (Auto) 1.1 H (0.0-0.8) K/uL Eos # (Auto) 0.1 (0.0-0.7) K/uL Baso # (Auto) 0.0 (0.0-0.1) K/uL Nucleated RBC % 0.0 /100WBC Nucleated RBCs # 0 K/uL INR 1.73 APTT 54.1 H (18.6-31.3) SEC Sodium (136-148) mmol/L Potassium (3.5-5.1) mmol/L Chloride (98-107) mmol/L Carbon Dioxide (21.0-32.0) mmol/L BUN (7.0-18.0) mg/dL Creatinine (0.8-1.3) mg/dL Est Cr Clr Drug Dosing mL/min Estimated GFR (MDRD) ml/min Glucose (74-106) mg/dL Calcium (8.5-10.1) mg/dL 10/07/20 Range/Units 05:28 WBC (4.0-11.0) K/uL RBC (4.50-5.90) M/uL Hgb (13.0-17.0) g/dL Hct (38.0-50.0) % MCV (80.0-98.0) fL MCH (27.0-32.0) pg MCHC (31.0-37.0) g/dL RDW Std Deviation (28.0-62.0) fl RDW Coeff of Karma (11.0-15.0) % Plt Count (150-400) K/uL MPV (7.40-12.00) fL Neut % (Auto) (48.0-80.0) % Lymph % (Auto) (16.0-40.0) % [place] % (Auto) (0.0-15.0) % Eos % (Auto) (0.0-7.0) % Baso % (Auto) (0.0-1.5) % Neut # (Auto) (1.4-5.7) K/uL Lymph # (Auto) (0.6-2.4) K/uL [place] # (Auto) (0.0-0.8) K/uL Eos # (Auto) (0.0-0.7) K/uL Baso # (Auto) (0.0-0.1) K/uL Nucleated RBC % /100WBC Nucleated RBCs # K/uL INR APTT (18.6-31.3) SEC Sodium 137 (136-148) mmol/L Potassium 3.8 (3.5-5.1) mmol/L Chloride 101 (98-107) mmol/L Carbon Dioxide 28.8 (21.0-32.0) mmol/L BUN 11 (7.0-18.0) mg/dL Creatinine 1.1 (0.8-1.3) mg/dL Est Cr Clr Drug Dosing 58.07 mL/min Estimated GFR (MDRD) > 60.0 ml/min Glucose 113 H (74-106) mg/dL Calcium 7.4 L (8.5-10.1) mg/dL Med Orders - Current: Current Medications Heparin Sodium/Sodium Chloride (Heparin 25,000 Units In 1/2 Ns 500 Ml) 500 mls @ 25.59 mls/hr IV TITRATE [facility]; Protocol Last Admin: 10/07/20 10:14 Dose: 24 units/kg/hr, 38.385 mls/hr Documented by: Lactated Ringer's (Ringers, Lactated) 1,000 mls @ 125 mls/hr IV ASDIRECTED [facility] Last Admin: 10/07/20 08:31 Dose: 125 mls/hr Documented by: Pantoprazole Sodium 40 mg/ (Sodium Chloride) 10 mls @ 300 mls/hr IV Q24H [facility] Last Admin: 10/06/20 23:57 Dose: 300 mls/hr Documented by: Morphine Sulfate (Morphine 2 Mg/Ml Syringe) 2 mg IVPUSH Q3H PRN PRN Reason: Pain Last Admin: 10/07/20 00:02 Dose: 2 mg Documented by: Ondansetron HCl (Ondansetron 4 Mg/2 Ml Sdv) 4 mg IVPUSH Q4H PRN PRN Reason: Nausea/Vomiting Oxycodone HCl (Oxycodone 5 Mg Tab) 5 mg PO Q4H PRN PRN Reason: Pain Last Admin: 10/07/20 04:13 Dose: 5 mg Documented by: Psyllium Husk Powder Sugar Free 5.85 Gm Packet 1 each PO DAILY [facility] Last Admin: 10/07/20 09:50 Dose: 1 each Documented by: Sodium Chloride (Sodium Chloride 0.9% 10 Ml Syringe) 10 ml FLUSH ASDIRECTED PRN PRN Reason: Keep Vein Open Last Admin: 10/03/20 16:20 Dose: 10 ml Documented by: Sodium Chloride (Sodium Chloride 0.9% 2.5 Ml Syringe) 2.5 ml FLUSH ASDIRECTED PRN PRN Reason: Keep Vein Open Last Admin: 10/03/20 16:20 Dose: 2.5 ml Documented by: Warfarin Sodium (Warfarin Ask Dosing) 1 each PO DAILY@1400 [facility] Last Admin: 10/06/20 15:20 Dose: Not Given Documented by: Warfarin Sodium (Warfarin 5 Mg Tab) 5 mg PO 10/07/20@1400 [facility] Stop: 10/07/20 16:00 Discontinued Medications Heparin Sodium (Porcine) (Heparin Sodium 5,000 Units/Ml Vial) 5,000 units IVPUSH ONETIME ONE Stop: 10/03/20 22:02 Last Admin: 10/03/20 22:30 Dose: 5,000 units Documented by: Heparin Sodium (Porcine) (Heparin Sodium 5,000 Units/Ml Vial) 2,500 units IVPUSH ONETIME ONE Stop: 10/04/20 05:31 Last Admin: 10/04/20 05:46 Dose: 2,500 units Documented by: Heparin Sodium (Porcine) (Heparin Sodium 5,000 Units/Ml Vial) 1,500 units IVPUSH .BOLUS ONE Stop: 10/04/20 11:58 Last Admin: 10/04/20 12:09 Dose: 1,500 units Documented by: Heparin Sodium (Porcine) (Heparin Sodium 5,000 Units/Ml Vial) 1,500 units IVPUSH .BOLUS ONE Stop: 10/04/20 17:17 Last Admin: 10/04/20 17:24 Dose: 1,500 units Documented by: Heparin Sodium (Porcine) (Heparin Sodium 5,000 Units/Ml Vial) Confirm Administered Dose 5,000 units .ROUTE .STK-MED ONE Stop: 10/04/20 17:21 Last Admin: 10/04/20 17:26 Dose: Not Given Documented by: Lactated Ringer's (Ringers, Lactated) 1,000 mls @ 999 mls/hr IV ASDIRECTED [facility] Last Admin: 10/05/20 07:49 Dose: 999 mls/hr Documented by: Iopamidol (Iopamidol 755 Mg/Ml 500 Ml Multipack Bottle) 100 ml IVPUSH ONETIME ONE Stop: 10/03/20 17:26 Last Admin: 10/03/20 17:25 Dose: 100 ml Documented by: Morphine Sulfate (Morphine 4 Mg/Ml Syringe) 4 mg IVPUSH ONETIME ONE Stop: 10/03/20 19:16 Last Admin: 10/03/20 19:55 Dose: 4 mg Documented by: Ondansetron HCl (Ondansetron 4 Mg/2 Ml Sdv) 4 mg IVPUSH ONETIME ONE Stop: 10/03/20 16:12 Last Admin: 10/03/20 16:19 Dose: 4 mg Documented by: Warfarin Sodium (Warfarin Ask Dosing) 1 each PO DAILY [facility] Last Admin: 10/04/20 09:45 Dose: Not Given Documented by: Warfarin Sodium (Warfarin 5 Mg Tab) 5 mg PO ONETIME ONE Stop: 10/04/20 14:01 Last Admin: 10/04/20 13:26 Dose: 5 mg Documented by: Warfarin Sodium (Warfarin 10 Mg Tab) 10 mg PO DAILY@1400 [facility] Stop: 10/05/20 15:00 Last Admin: 10/05/20 13:22 Dose: 10 mg Documented by: Warfarin Sodium (Warfarin 5 Mg Tab) 5 mg PO 10/06/20@1400 [facility] Stop: 10/06/20 16:00 Last Admin: 10/06/20 13:56 Dose: 5 mg Documented by: - Exam General: Alert, Oriented Neck: Supple Lungs: Clear to Auscultation, Normal Respiratory Effort Cardiovascular: Regular Rate, Regular Rhythm GI/Abdominal Exam: Soft, Non-Tender, No Distention Extremities: Non-Tender, No Pedal Edema Skin: Warm, Dry, Intact - Patient Data Lab Results Last 24 hrs: Laboratory Results - last 24 hr 10/06/20 10/07/20 10/07/20 Range/Units 13:30 05:28 05:28 WBC 10.11 (4.0-11.0) K/uL RBC 3.47 L (4.50-5.90) M/uL Hgb 10.5 L (13.0-17.0) g/dL Hct 33.1 L (38.0-50.0) % MCV 95.4 (80.0-98.0) fL MCH 30.3 (27.0-32.0) pg MCHC 31.7 (31.0-37.0) g/dL RDW Std Deviation 44.5 (28.0-62.0) fl RDW Coeff of Karma 13 (11.0-15.0) % Plt Count 253 (150-400) K/uL MPV 8.70 (7.40-12.00) fL Neut % (Auto) 77.6 (48.0-80.0) % Lymph % (Auto) 10.1 L (16.0-40.0) % [place] % (Auto) 11.2 (0.0-15.0) % Eos % (Auto) 0.9 (0.0-7.0) % Baso % (Auto) 0.2 (0.0-1.5) % Neut # (Auto) 7.9 H (1.4-5.7) K/uL Lymph # (Auto) 1.0 (0.6-2.4) K/uL [place] # (Auto) 1.1 H (0.0-0.8) K/uL Eos # (Auto) 0.1 (0.0-0.7) K/uL Baso # (Auto) 0.0 (0.0-0.1) K/uL Nucleated RBC % 0.0 /100WBC Nucleated RBCs # 0 K/uL INR 1.73 APTT 54.1 H (18.6-31.3) SEC Sodium (136-148) mmol/L Potassium (3.5-5.1) mmol/L Chloride (98-107) mmol/L Carbon Dioxide (21.0-32.0) mmol/L BUN (7.0-18.0) mg/dL Creatinine (0.8-1.3) mg/dL Est Cr Clr Drug Dosing mL/min Estimated GFR (MDRD) ml/min Glucose (74-106) mg/dL Calcium (8.5-10.1) mg/dL 10/07/20 Range/Units 05:28 WBC (4.0-11.0) K/uL RBC (4.50-5.90) M/uL Hgb (13.0-17.0) g/dL Hct (38.0-50.0) % MCV (80.0-98.0) fL MCH (27.0-32.0) pg MCHC (31.0-37.0) g/dL RDW Std Deviation (28.0-62.0) fl RDW Coeff of Karma (11.0-15.0) % Plt Count (150-400) K/uL MPV (7.40-12.00) fL Neut % (Auto) (48.0-80.0) % Lymph % (Auto) (16.0-40.0) % [place] % (Auto) (0.0-15.0) % Eos % (Auto) (0.0-7.0) % Baso % (Auto) (0.0-1.5) % Neut # (Auto) (1.4-5.7) K/uL Lymph # (Auto) (0.6-2.4) K/uL [place] # (Auto) (0.0-0.8) K/uL Eos # (Auto) (0.0-0.7) K/uL Baso # (Auto) (0.0-0.1) K/uL Nucleated RBC % /100WBC Nucleated RBCs # K/uL INR APTT (18.6-31.3) SEC Sodium 137 (136-148) mmol/L Potassium 3.8 (3.5-5.1) mmol/L Chloride 101 (98-107) mmol/L Carbon Dioxide 28.8 (21.0-32.0) mmol/L BUN 11 (7.0-18.0) mg/dL Creatinine 1.1 (0.8-1.3) mg/dL Est Cr Clr Drug Dosing 58.07 mL/min Estimated GFR (MDRD) > 60.0 ml/min Glucose 113 H (74-106) mg/dL Calcium 7.4 L (8.5-10.1) mg/dL Result Diagrams: 10/07/20 05:28 10/07/20 05:28 Sepsis Event Note - Evaluation Sepsis Screening Result: No Definite Risk - Focused Exam Vital Signs: Vital Signs Temp Pulse Resp BP Pulse Ox Pulse Ox 10/07/20 08:10 36.2 C 61 18 146/57 H 92 L 10/07/20 06:00 96 10/07/20 04:17 36.7 C 70 17 129/64 96 10/07/20 00:09 37.2 C 73 16 114/74 96 - Problem List Review Problem List Initiated/Reviewed/Updated: Yes - My Orders Last 24 Hours: My Active Orders 10/07/20 14:00 Warfarin [Coumadin] 5 mg PO 10/07/20@1400 10/08/20 05:11 INR,PT,PROTHROMBIN TIME [COAG] AM - Plan Plan:: 75 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 Patient is on morphine and oxycodone for pain control. We will continue Coumadin with heparin bridge. INR is 1.7 today. I encourage incentive spirometer use. I anticipate discharge in 1-2 days.
[2020-10-07] MEDS ORDERED: Warfarin 5 MG Tab PO SCH (14:00)
[2020-10-07] MEDS: Pantoprazole 40 MG in Sodium Chloride 0.9% 10 ML IV SCH (23:56)
[2020-10-08] MEDS: oxyCODONE 5 MG Tab PO PRN (01:27)
--- NOTE | 2020-10-08 07:42 | PCM.PN ---
- General Info Date of Service: 10/08/20 - Review of Systems Systems Review Comment:: feeling better, abdominal pain improving, having daily bowel movements - Patient Data Vitals - Most Recent: Last Vital Signs Temp 37.2 C 10/08/20 05:14 Pulse 72 10/08/20 05:14 Resp 17 10/08/20 05:14 BP 127/70 10/08/20 05:14 Pulse Ox 94 L 10/08/20 05:14 Weight - Most Recent: 79.968 kg I&O - Last 24 Hours: Intake & Output 10/07/20 10/08/20 10/08/20 22:59 06:59 14:59 Intake Total 1240 1014 Output Total 480 0 Balance 760 1014 Lab Results Last 24 Hours: Laboratory Results - last 24 hr 10/07/20 10/08/20 Range/Units 10:22 05:50 INR 2.22 APTT 51.0 H (18.6-31.3) SEC Med Orders - Current: Current Medications Heparin Sodium/Sodium Chloride (Heparin 25,000 Units In 1/2 Ns 500 Ml) 500 mls @ 25.59 mls/hr IV TITRATE [facility]; Protocol Last Admin: 10/07/20 23:55 Dose: 24 units/kg/hr, 38.385 mls/hr Documented by: Pantoprazole Sodium 40 mg/ (Sodium Chloride) 10 mls @ 300 mls/hr IV Q24H [facility] Last Admin: 10/07/20 23:56 Dose: 300 mls/hr Documented by: Morphine Sulfate (Morphine 2 Mg/Ml Syringe) 2 mg IVPUSH Q3H PRN PRN Reason: Pain Last Admin: 10/07/20 00:02 Dose: 2 mg Documented by: Ondansetron HCl (Ondansetron 4 Mg/2 Ml Sdv) 4 mg IVPUSH Q4H PRN PRN Reason: Nausea/Vomiting Oxycodone HCl (Oxycodone 5 Mg Tab) 5 mg PO Q4H PRN PRN Reason: Pain Last Admin: 10/08/20 01:27 Dose: 5 mg Documented by: Psyllium Husk Powder Sugar Free 5.85 Gm Packet 1 each PO DAILY [facility] Last Admin: 10/07/20 09:50 Dose: 1 each Documented by: Sodium Chloride (Sodium Chloride 0.9% 10 Ml Syringe) 10 ml FLUSH ASDIRECTED PRN PRN Reason: Keep Vein Open Last Admin: 10/03/20 16:20 Dose: 10 ml Documented by: Sodium Chloride (Sodium Chloride 0.9% 2.5 Ml Syringe) 2.5 ml FLUSH ASDIRECTED PRN PRN Reason: Keep Vein Open Last Admin: 10/03/20 16:20 Dose: 2.5 ml Documented by: Warfarin Sodium (Warfarin Ask Dosing) 1 each PO DAILY@1400 [facility] Last Admin: 10/07/20 13:53 Dose: Not Given Documented by: Discontinued Medications Heparin Sodium (Porcine) (Heparin Sodium 5,000 Units/Ml Vial) 5,000 units I VPUSH ONETIME ONE Stop: 10/03/20 22:02 Last Admin: 10/03/20 22:30 Dose: 5,000 units Documented by: Heparin Sodium (Porcine) (Heparin Sodium 5,000 Units/Ml Vial) 2,500 units IVPUSH ONETIME ONE Stop: 10/04/20 05:31 Last Admin: 10/04/20 05:46 Dose: 2,500 units Documented by: Heparin Sodium (Porcine) (Heparin Sodium 5,000 Units/Ml Vial) 1,500 units IVPUSH .BOLUS ONE Stop: 10/04/20 11:58 Last Admin: 10/04/20 12:09 Dose: 1,500 units Documented by: Heparin Sodium (Porcine) (Heparin Sodium 5,000 Units/Ml Vial) 1,500 units IVPUSH .BOLUS ONE Stop: 10/04/20 17:17 Last Admin: 10/04/20 17:24 Dose: 1,500 units Documented by: Heparin Sodium (Porcine) (Heparin Sodium 5,000 Units/Ml Vial) Confirm Administered Dose 5,000 units .ROUTE .STK-MED ONE Stop: 10/04/20 17:21 Last Admin: 10/04/20 17:26 Dose: Not Given Documented by: Lactated Ringer's (Ringers, Lactated) 1,000 mls @ 999 mls/hr IV ASDIRECTED [facility] Last Admin: 10/05/20 07:49 Dose: 999 mls/hr Documented by: Lactated Ringer's (Ringers, Lactated) 1,000 mls @ 125 mls/hr IV ASDIRECTED [facility] Last Admin: 10/07/20 08:31 Dose: 125 mls/hr Documented by: Iopamidol (Iopamidol 755 Mg/Ml 500 Ml Multipack Bottle) 100 ml IVPUSH ONETIME ONE Stop: 10/03/20 17:26 Last Admin: 10/03/20 17:25 Dose: 100 ml Documented by: Morphine Sulfate (Morphine 4 Mg/Ml Syringe) 4 mg IVPUSH ONETIME ONE Stop: 10/03/20 19:16 Last Admin: 10/03/20 19:55 Dose: 4 mg Documented by: Ondansetron HCl (Ondansetron 4 Mg/2 Ml Sdv) 4 mg IVPUSH ONETIME ONE Stop: 10/03/20 16:12 Last Admin: 10/03/20 16:19 Dose: 4 mg Documented by: Warfarin Sodium (Warfarin Ask Dosing) 1 each PO DAILY [facility] Last Admin: 10/04/20 09:45 Dose: Not Given Documented by: Warfarin Sodium (Warfarin 5 Mg Tab) 5 mg PO ONETIME ONE Stop: 10/04/20 14:01 Last Admin: 10/04/20 13:26 Dose: 5 mg Documented by: Warfarin Sodium (Warfarin 10 Mg Tab) 10 mg PO DAILY@1400 [facility] Stop: 10/05/20 15:00 Last Admin: 10/05/20 13:22 Dose: 10 mg Documented by: Warfarin Sodium (Warfarin 5 Mg Tab) 5 mg PO 10/06/20@1400 [facility] Stop: 10/06/20 16:00 Last Admin: 10/06/20 13:56 Dose: 5 mg Documented by: Warfarin Sodium (Warfarin 5 Mg Tab) 5 mg PO 10/07/20@1400 [facility] Stop: 10/07/20 16:00 Last Admin: 10/07/20 13:53 Dose: 5 mg Documented by: - Exam General: Alert, Oriented Neck: Supple Lungs: Clear to Auscultation, Normal Respiratory Effort Cardiovascular: Regular Rate, Regular Rhythm Extremities: Non-Tender, No Pedal Edema - Patient Data Lab Results Last 24 hrs: Laboratory Results - last 24 hr 10/07/20 10/08/20 Range/Units 10:22 05:50 INR 2.22 APTT 51.0 H (18.6-31.3) SEC Result Diagrams: 10/07/20 05:28 10/07/20 05:28 Sepsis Event Note - Evaluation Sepsis Screening Result: No Definite Risk - Focused Exam Vital Signs: Vital Signs Temp Pulse Resp BP Pulse Ox 10/08/20 05:14 37.2 C 72 17 127/70 94 L 10/08/20 01:00 37.5 C 68 17 129/66 94 L 10/07/20 21:00 37.3 C 75 16 109/69 94 L - Problem List Review Problem List Initiated/Reviewed/Updated: Yes - My Orders Last 24 Hours: My Active Orders 10/08/20 05:11 BASIC METABOLIC PANEL,BMP [CHEM] AM CBC WITH AUTO DIFF [HEME] AM 10/09/20 05:11 BASIC METABOLIC PANEL,BMP [CHEM] AM CBC WITH AUTO DIFF [HEME] AM - Plan Plan:: 75 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 Patient is on morphine and oxycodone for pain control. We will continue Coumadin with heparin bridge. INR is 2.2 today. I encourage incentive spirometer use and walking today. I anticipate discharge tomorrow if INR stable.
[2020-10-08 08:02] LABS: BLOOD UREA NITROGEN,BUN 10 mg/dL (7.0-18.0); CARBON DIOXIDE,CO2 29.3 mmol/L (21.0-32.0); CHLORIDE,CL 100 mmol/L (98-107); GLUCOSE RANDOM 112 mg/dL (74-106); POTASSIUM,K 3.8 mmol/L (3.5-5.1); SODIUM,NA 136 mmol/L (136-148)
[2020-10-08] MEDS: Psyllium Husk Powder Sugar Free 5.85 GM Packet PO SCH (10:42)
[2020-10-08] MEDS: Heparin Sodium/0.45% NaCl 500 ML IV SCH (12:53)
[2020-10-08] MEDS ORDERED: Warfarin 5 MG Tab PO SCH (14:00)
--- NOTE | 2020-10-08 15:22 | ECHO ---
EXAM DATE: 10/03/20 PATIENT'S AGE: 75 The ECHO report has been scanned into [employer] and can be seen in this patient's EMR (Electronic Medical Record) under the REPORTS section. The report has also been scanned into PACS. JALEN
[2020-10-09] MEDS: Pantoprazole 40 MG in Sodium Chloride 0.9% 10 ML IV SCH (00:01)
[2020-10-09 05:29] LABS: BLOOD UREA NITROGEN,BUN 9 mg/dL (7.0-18.0); CHLORIDE,CL 103 mmol/L (98-107); GLUCOSE RANDOM 116 mg/dL (74-106); POTASSIUM,K 3.9 mmol/L (3.5-5.1); SODIUM,NA 139 mmol/L (136-148)
[2020-10-09 07:09] VITALS: PULSE 68
[2020-10-09] MEDS: Psyllium Husk Powder Sugar Free 5.85 GM Packet PO SCH (09:21)
[2020-10-09] MEDS ORDERED: Warfarin 5 MG Tab PO SCH (11:00)
[2020-10-09 11:39] VITALS: BP 109/73
--- NOTE | 2020-10-09 12:37 | PCM.DCSUM1 ---
Discharge Summary - Discharge Data Discharge Date: 10/09/20 Discharge Disposition: Home, Self-Care 01 Condition: Stable - Referral to Home Health Primary Care Physician: Mahendra Shirley NP - Patient Summary/Data Hospital Course: 75 yo male with pmh of bioprosthetic aortic valve in 2019 and groin trauma from falling off a construction site who was admitted for splenic infarct. Patient presented withsymptoms of nausea, vomting and abdominal pain. Dr. Fonseca was consulted in the ED due to CT findings of infarct of spleen. She called the vascular surgeon in [place] who recommended hydration and anticoagulation. Patient was started on coumadin with heparin bridge. He was hydrate with IV fluids and giving morphine and oxycodone for pain. He did have improvement in his pain and started to tolerate an oral diet. His INR has be therapeutic for over 24 hours and he has been bridged for over five days. He no longer requires narcotics for pain management. Patient does have some leg edema from fluid resuscitation but will avoid diuretics for now due to recent splenic infarct. He is to be discharged home to have follow up with [place]. The [place] [facility] was called and agreed to check his INR on Monday10/12/20. He was instructed to consult with his PCP regarding cancer screenings. Patient also has follow up with Hematology. - Patient Instructions Diet: Usual Diet as Tolerated (eat a consitant diet while on Coumadin, inform doctor of any changes to your diet) Activity: As Tolerated, No Strenuous Activities Notify Provider of: Fever, Increased Pain, Nausea and/or Vomiting Other/Special Instructions: [facility] [place] [facility] Take Coumadin 2.5mg on Monday and Monday and then [facility]. - Discharge Plan Prescriptions/Med Rec: Warfarin [Coumadin] 2.5 mg PO DAILY #30 tab Home Medications: Home Meds Psyllium Husk/Aspartame [Metamucil Sugar Free] 1 pkt PO DAILY 10/06/20 [History] Warfarin [Coumadin] 2.5 mg PO DAILY #30 tab 10/09/20 [Rx] Patient Handouts: Splenic Injury, Cholelithiasis, [id number], Abdominal Pain, Adult, [id number] Referrals: Mahendra Shirley NP [Primary Care Provider] - 10/20/20 12:30 pm (Go to [facility] on Monday10/12/20 at 11am ([facility] [employer]) for INR check and coumadin adjustment.) Rhys Tabor MD [Ordering Only Provider] - 10/29/20 2:00 pm (Your appointment is here in [facility] ([place]).) - Discharge Summary/Plan Comment DC Time >30 min.: No - Patient Data Vitals - Most Recent: Last Vital Signs Temp 37.4 C 10/09/20 11:31 Pulse 68 10/09/20 11:31 Resp 18 10/09/20 11:31 BP 109/73 10/09/20 11:31 Pulse Ox 96 10/09/20 11:31 Weight - Most Recent: 79.968 kg I&O - Last 24 hours: Intake & Output 10/08/20 10/09/20 10/09/20 22:59 06:59 14:59 Intake Total 1137 750 Output Total 0 Balance 1137 750 Lab Results - Last 24 hrs: Laboratory Results - last 24 hr 10/09/20 10/09/20 10/09/20 Range/Units 04:58 04:58 06:16 WBC 9.24 (4.0-11.0) K/uL RBC 3.50 L (4.50-5.90) M/uL Hgb 10.7 L (13.0-17.0) g/dL Hct 33.0 L (38.0-50.0) % MCV 94.3 (80.0-98.0) fL MCH 30.6 (27.0-32.0) pg MCHC 32.4 (31.0-37.0) g/dL RDW Std Deviation 43.5 (28.0-62.0) fl RDW Coeff of Karma 13 (11.0-15.0) % Plt Count 298 (150-400) K/uL MPV 8.50 (7.40-12.00) fL Neut % (Auto) 75.5 (48.0-80.0) % Lymph % (Auto) 12.2 L (16.0-40.0) % [place] % (Auto) 11.3 (0.0-15.0) % Eos % (Auto) 0.9 (0.0-7.0) % Baso % (Auto) 0.1 (0.0-1.5) % Neut # (Auto) 7.0 H (1.4-5.7) K/uL Lymph # (Auto) 1.1 (0.6-2.4) K/uL [place] # (Auto) 1.0 H (0.0-0.8) K/uL Eos # (Auto) 0.1 (0.0-0.7) K/uL Baso # (Auto) 0.0 (0.0-0.1) K/uL Nucleated RBC % 0.0 /100WBC Nucleated RBCs # 0 K/uL INR 2.71 Sodium 139 (136-148) mmol/L Potassium 3.9 (3.5-5.1) mmol/L Chloride 103 (98-107) mmol/L Carbon Dioxide 30.0 (21.0-32.0) mmol/L BUN 9 (7.0-18.0) mg/dL Creatinine 1.1 (0.8-1.3) mg/dL Est Cr Clr Drug Dosing 58.07 mL/min Estimated GFR (MDRD) > 60.0 ml/min Glucose 116 H (74-106) mg/dL Calcium 7.9 L (8.5-10.1) mg/dL Med Orders - Current: Current Medications Heparin Sodium/Sodium Chloride (Heparin 25,000 Units In 1/2 Ns 500 Ml) 500 mls @ 25.59 mls/hr IV TITRATE [facility]; Protocol Last Titration: 10/09/20 02:17 Dose: Infused Documented by: Pantoprazole Sodium 40 mg/ (Sodium Chloride) 10 mls @ 300 mls/hr IV Q24H [facility] Last Admin: 10/09/20 00:01 Dose: 300 mls/hr Documented by: Morphine Sulfate (Morphine 2 Mg/Ml Syringe) 2 mg IVPUSH Q3H PRN PRN Reason: Pain Last Admin: 10/07/20 00:02 Dose: 2 mg Documented by: Ondansetron HCl (Ondansetron 4 Mg/2 Ml Sdv) 4 mg IVPUSH Q4H PRN PRN Reason: Nausea/Vomiting Oxycodone HCl (Oxycodone 5 Mg Tab) 5 mg PO Q4H PRN PRN Reason: Pain Last Admin: 10/08/20 01:27 Dose: 5 mg Documented by: Psyllium Husk Powder Sugar Free 5.85 Gm Packet 1 each PO DAILY [facility] Last Admin: 10/09/20 09:21 Dose: 1 each Documented by: Sodium Chloride (Sodium Chloride 0.9% 10 Ml Syringe) 10 ml FLUSH ASDIRECTED PRN PRN Reason: Keep Vein Open Last Admin: 10/03/20 16:20 Dose: 10 ml Documented by: Sodium Chloride (Sodium Chloride 0.9% 2.5 Ml Syringe) 2.5 ml FLUSH ASDIRECTED PRN PRN Reason: Keep Vein Open Last Admin: 10/03/20 16:20 Dose: 2.5 ml Documented by: Warfarin Sodium (Warfarin Ask Dosing) 1 each PO DAILY@1400 [facility] Last Admin: 10/08/20 14:23 Dose: Not Given Documented by: Warfarin Sodium (Warfarin 5 Mg Tab) 5 mg PO DAILY@1100 [facility] Last Admin: 10/09/20 11:48 Dose: 5 mg Documented by: Discontinued Medications Heparin Sodium (Porcine) (Heparin Sodium 5,000 Units/Ml Vial) 5,000 units IVPUSH ONETIME ONE Stop: 10/03/20 22:02 Last Admin: 10/03/20 22:30 Dose: 5,000 units Documented by: Heparin Sodium (Porcine) (Heparin Sodium 5,000 Units/Ml Vial) 2,500 units IVPUSH ONETIME ONE Stop: 10/04/20 05:31 Last Admin: 10/04/20 05:46 Dose: 2,500 units Documented by: Heparin Sodium (Porcine) (Heparin Sodium 5,000 Units/Ml Vial) 1,500 units IVPUSH .BOLUS ONE Stop: 10/04/20 11:58 Last Admin: 10/04/20 12:09 Dose: 1,500 units Documented by: Heparin Sodium (Porcine) (Heparin Sodium 5,000 Units/Ml Vial) 1,500 units IVP [facility] .BOLUS ONE Stop: 10/04/20 17:17 Last Admin: 10/04/20 17:24 Dose: 1,500 units Documented by: Heparin Sodium (Porcine) (Heparin Sodium 5,000 Units/Ml Vial) Confirm Administered Dose 5,000 units .ROUTE .STK-MED ONE Stop: 10/04/20 17:21 Last Admin: 10/04/20 17:26 Dose: Not Given Documented by: Lactated Ringer's (Ringers, Lactated) 1,000 mls @ 999 mls/hr IV ASDIRECTED [facility] Last Admin: 10/05/20 07:49 Dose: 999 mls/hr Documented by: Lactated Ringer's (Ringers, Lactated) 1,000 mls @ 125 mls/hr IV ASDIRECTED [facility] Last Admin: 10/07/20 08:31 Dose: 125 mls/hr Documented by: Iopamidol (Iopamidol 755 Mg/Ml 500 Ml Multipack Bottle) 100 ml IVPUSH ONETIME ONE Stop: 10/03/20 17:26 Last Admin: 10/03/20 17:25 Dose: 100 ml Documented by: Morphine Sulfate (Morphine 4 Mg/Ml Syringe) 4 mg IVPUSH ONETIME ONE Stop: 10/03/20 19:16 Last Admin: 10/03/20 19:55 Dose: 4 mg Documented by: Ondansetron HCl (Ondansetron 4 Mg/2 Ml Sdv) 4 mg IVPUSH ONETIME ONE Stop: 10/03/20 16:12 Last Admin: 10/03/20 16:19 Dose: 4 mg Documented by: Warfarin Sodium (Warfarin Ask Dosing) 1 each PO DAILY [facility] Last Admin: 10/04/20 09:45 Dose: Not Given Documented by: Warfarin Sodium (Warfarin 5 Mg Tab) 5 mg PO ONETIME ONE Stop: 10/04/20 14:01 Last Admin: 10/04/20 13:26 Dose: 5 mg Documented by: Warfarin Sodium (Warfarin 10 Mg Tab) 10 mg PO DAILY@1400 [facility] Stop: 10/05/20 15:00 Last Admin: 10/05/20 13:22 Dose: 10 mg Documented by: Warfarin Sodium (Warfarin 5 Mg Tab) 5 mg PO 10/06/20@1400 [facility] Stop: 10/06/20 16:00 Last Admin: 10/06/20 13:56 Dose: 5 mg Documented by: Warfarin Sodium (Warfarin 5 Mg Tab) 5 mg PO 10/07/20@1400 [facility] Stop: 10/07/20 16:00 Last Admin: 10/07/20 13:53 Dose: 5 mg Documented by: Warfarin Sodium (Warfarin 5 Mg Tab) 5 mg PO 10/08/20@1400 [facility] Stop: 10/08/20 16:00 Last Admin: 10/08/20 14:23 Dose: 5 mg Documented by:
== END 2020-10-09 15:15 | disposition home or self-care (01) | DRG 816 ==
LOC: MW.ED 15:46 → MW.MS 19:54
PROVIDERS: ADMIT Internal Medicine; ATTEND Internal Medicine
DX: R10.84 Generalized abdominal pain (principal); D73.5 Infarction of spleen; K80.20 Calculus of gallbladder without cholecystitis without obstruction; H91.90 Unspecified hearing loss, unspecified ear; I25.10 Atherosclerotic heart disease of native coronary artery without angina pectoris; M19.90 Unspecified osteoarthritis, unspecified site; Z95.1 Presence of aortocoronary bypass graft; Z90.49 Acquired absence of other specified parts of digestive tract; Z85.820 Personal history of malignant melanoma of skin; Z95.2 Presence of prosthetic heart valve; Z88.0 Allergy status to penicillin; Z20.822 Contact with and (suspected) exposure to COVID-19
CPT/HCPCS: 0240U; 36415; 71045; 71045-26; 74177; 74177-26; 80048; 80053; 81003; 83605; 83690; 83735; 85025; 85610; 85730; 93306; 96374; 99221; 99231; 99238; 99285-25; A9270-GY; C9113; J1644; J2270; J2405; J7120; Q9967